=== PATIENT | male | born 1935 | race Caucasian/White ===

== ENCOUNTER 2016-04-19 14:57 | Inpatient (IN) | payer MEDICARE, OTHER ==
[~2016-04-19] VITALS: Ht 182.9 cm; Wt 190.2 kg
[2016-04-19] VITALS (9 sets, daily range): BP systolic 92–169; BP diastolic 58–77; PULSE 60–85; RESP 16–29; O2SAT 79–100
[~2016-04-19 14:57] MED LIST: ALPR0.5T PO; ARFO15VI2 NEB; ASCO-294 PO; ASPI81TA3 PO; Acetaminophen PO; Albuterol NEB; Albuterol/Ipratropium NEB; BDS.4IN INH; BUDE1AMP IH; FERR-74 PO; FRSM80T PO; FURO80TA83 PO; MONT10TA23 PO; MUPI22OI2 TOPICAL; NYST1POW23 MC; NYST1POW25 TOPICAL; PARO20TA5 PO; POLY17PO6 PO; POTA10TA7 PO; PRE10 PO; TRAM-14 PO; VITA80006 PO
--- NOTE | 2016-04-19 15:16 | ED.REPORT ---
HPI-Dyspnea / Wheezing Date of Service Apr 19, 2016 ED Provider: Dr. Baldemar Hoffman M.D. A 81 year old male with an extensive medical history including COPD, hypertension, CHF, and atrial fibrillation presents to the ED via EMS from his PCP's office with worsening shortness of breath onset one week ago. The patient also reports a productive cough. He was seen by his PCP for a routine check-up today, but was found to have low O2 saturation. The patient ran out of his Albuterol, DuoNeb, and Lasix recently. He denies chest pain, fever, vomiting, or diarrhea. The patient is on home O2. Nursing Notes Stated Complaint: SOB Chief Complaint: Respiratory Distress Nursing Notes Reviewed: Yes Allergies: Coded Allergies: No Known Allergies (Unverified , 04/19/16) Scheduled Albuterol Neb Soln (Albuterol Neb Soln) 2.5 Mg/3 Ml Vial.neb 3 ML INHALATION QID Alprazolam (Alprazolam) 0.5 Mg Tablet 0.5 MG PO BID Arformoterol Tartrate (Brovana) 15 Mcg/2 Ml Nebu 15 MCG NEB BID Aspirin Chew (Aspirin Chew) 81 Mg Chew 81 MG PO DAILY Budesonide (Pulmicort) 1 Mg/2 Ml Ampul.neb 1 MG IH BID Bupropion ER (Bupropion ER) 150 Mg Tablet.er 150 MG PO QAM Cyanocobalamin (Vitamin B-12) (Vitamin B-12) 1,000 Mcg Tab.subl 1,000 MCG SL DAILY Ferrous Sulfate (Ferrous Sulfate) 325 Mg Tablet 325 MG PO BID Furosemide (Furosemide) 80 Mg Tab 160 MG PO QAM Furosemide (Lasix) 80 Mg Tablet 80 MG PO QPM Lisinopril (Lisinopril) 10 Mg Tablet 10 MG PO BID Montelukast (Montelukast) 10 Mg Tablet 10 MG PO HS Paroxetine (Paroxetine) 20 Mg Tablet 20 MG PO HS Potassium Chloride ER (Klor-Con 10) 10 Meq Tablet.er 10 MEQ PO BID Prednisone (PredniSONE) 10 Mg Tablet 10 MG PO QAM Scheduled PRN Albuterol Sulfate (Ventolin HFA Inhaler) 200 Puff/18 Gm Inhaler 1-2 PUFFS INHALATION QID PRN PRN For Shortness of Breath Ipratropium/Albuterol Sulfate (Iprat-Albut 0.5-3(2.5) mg/3 mL Inhalant Soln) 3 Ml Ampul.neb 3 ML IH Q6 PRN PRN For Wheezing Metolazone (Metolazone) 2.5 Mg Tablet 2.5 MG PO 1-2 xWEEK PRN PRN LE EDEMA Nystatin (Nystop) 60 Gm Powder 1 APPLIC TOPICAL BID PRN PRN rash Polyethylene Glycol 3350 (Miralax) 17 Gm Powd.pack 17 GM PO DAILY PRN PRN For Constipation Sennosides (Senna) 8.6 Mg Tablet 8.6 MG PO DAILY PRN PRN For Constipation Tramadol (Tramadol) 50 Mg Tablet 50 MG PO QID PRN PRN For Pain Trazodone (Trazodone) 50 Mg Tablet 25 MG PO HS PRN PRN insom General Time Seen by MD: 15:15 Chief Complaint Shortness of breath Hx Obtained From: Patient Arrived By: Ambulance Onset Occurred: 1 week ago Symptom Duration: Since onset Severity: Current: No pain currently Severity: Maximum: No pain Associated with: Reports: Cough, Denies: Fever, Vomiting Pertinent Negative: Relieved by nothing Context Related History: Reports: COPD, Congestive heart failure Recent Healthcare: Recent doctor visit Similar Sx Previous: Yes Past Medical History Past Medical History Notes: Admitted January 23 through 01/30/2015 for pneumonia culturing positive for Moraxella catarrhalis Past Medical History Severe COPD, history of hypoxic hypercarbic respiratory failure, also obesity hypoventilation syndrome and sleep apnea On home O2 Morbid obesity Pulmonary hypertension Insomnia Obstructive Sleep Apnea Depression Gout Cellulitis MRSA Reports: Cancer (Prostate), Congestive heart failure (Diastolic), Hypertension Reports: Atrial fibrillation Past Surgical History Prostatectomy for prostate CA Cholecystectomy Appendectomy White knee arthroplasty Family History Mother () bladder cancer Smoking History Former Smoker Social History Lives with . Alcohol Use: Denies alcohol use Drug Use: Denies drug use Ambulatory Status Cane Review of Systems Review of Systems Note: + productive cough, low O2 saturation Constitutional: Denies: Fever Respiratory: Reports: Shortness of breath Cardiovascular: Denies: Chest pain Complete sys rev & neg: except as marked. GI: Denies: Diarrhea, Vomiting Physical Exam Initial Vital Signs Vital Signs (First) Date Time Temp Pulse Resp B/P Pulse Ox O2 Delivery O2 Flow Rate FiO2 04/19/16 15:11 36.8 85 17 92/61 94 Nasal Cannula 4 Initial VS: Reviewed Head / Eyes: Atraumatic, Normocephalic ENT: Conjunctiva normal, No scleral icterus Abdomen / GI: Soft, Non-tender Skin: Warm, Dry, No cyanosis Neurologic: Alert, Oriented, Nonfocal Psychiatric: Mood/affect normal, Behavior normal, Normal thought content General/Constitutional: Awake, Alert, No acute distress Appearance / Presentation: Positive: Obese Neck: Supple, Full range of motion Respiratory / Chest: Breath sounds = bilat, No respiratory distress, No rales, No rhonchi Wheezing / Retractions: Positive: Wheezing expiratory (Diffuse) Cardiovascular: Heart rate NL, Regular rhythm, Heart sounds NL Lower Extremity / Pelvis / MS: No deformity, No edema Chronic venous stasis changes of lower extremities Interpretation & Diagnostics Lab Results Interpretation Result Diagram: 04/20/16 0515 04/20/16 0515 Test 04/19/16 15:33 04/19/16 15:51 Total Bilirubin 0.7mg/dL (0.0-1.2) Aspartate Amino Transf (AST/SGOT) 19U/L (0-50) Alanine Aminotransferase (ALT/SGPT) 12U/L (0-44) Alkaline Phosphatase 69U/L (25-160) Pro-B-Type Natriuretic Peptide 2142pg/mL (0-486) Total Protein 6.8g/dL (6.4-8.4) Albumin 3.5g/dL (3.4-5.0) Hold Mir Top Tube Received (Received) ECG Interpretation ECG Interpretation: Atrial fibrillation rate 73 Time: 15:24 Interpreted by: ED physician X-Ray Chest Interpretation Chest Xray Interpretation: IMPRESSION: Considering reduced inspiration no cardiomegaly is found. Chronic mild to moderate interstitial prominence. It is possible that there is a mild acute CHF exacerbation. Dictated by: Everardo Chong M.D. on 04/19/2016 at 16:36 View: Portable, 1 view Interpretation / Wet Read by: Interpret - Radiologist Re-Eval/Medical Decision Source of Hx: Old records Re-Evaluation/Progress #1: Time of Eval: 17:25 Patient Status: Condition improved Re-Evaluation/Progress Note: Discussed with patient x-ray and lab results, diagnosis, and plan for discharge. Patient agrees with plan for care and all questions were addressed. Re-Evaluation/Progress #2: Time of Eval: 17:40 Re-Evaluation/Progress Note: Patient's O2 sats dropped into low 80s when going to the bathroom. Discussed with patient plan for admit. Patient agrees with plan for care and all questions were addressed. Consultation : Referral / Consult Name: Itzel Toney MD Consulted With: Hospitalist Belly Dump Driver: Will see patient, Accepts admit Counseled Regarding: Diagnosis, Lab results, Need for admission Discharge & Departure Impression: Primary Impression: CHF exacerbation Disposition: ADMITTED TO HOSPITAL Discharge Condition All VS Reviewed: Yes Condition: Stable Referrals: Rk Valiente MD (PCP) Murphyibsilvia Attestation Portions of this note were transcribed by Lakeisha Vital. I, Dr. Hoffman, personally performed the history, physical exam, and medical decision-making; I reviewed and confirmed the accuracy of the information in the transcribed note. Signed by: Rena Kraft, 04/19/2016, 17:55 copies to: Rk Valiente MD, Kirk H MD Apr 19, 2016 15:16 LAKEISHA VITAL Apr 19, 2016 15:30 Alanine Aminotransferase (ALT/SGPT) 12U/L (0-44) Alkaline Phosphatase 69U/L (25-160) Troponin T 0.014ug/L (0.0-0.011) Pro-B-Type Natriuretic Peptide 2142pg/mL (0-486) Total Protein 6.8g/dL (6.4-8.4) Albumin 3.5g/dL (3.4-5.0) Hold Mir Top Tube Received (Received) ECG Interpretation ECG Interpretation: Atrial fibrillation rate 73 Time: 15:24 Interpreted by: ED physician X-Ray Chest Interpretation Chest Xray Interpretation: IMPRESSION: Considering reduced inspiration no cardiomegaly is found. Chronic mild to moderate interstitial prominence. It is possible that there is a mild acute CHF exacerbation. Dictated by: Everardo Chong M.D. on 04/19/2016 at 16:36 View: Portable, 1 view Interpretation / Wet Read by: Interpret - Radiologist Re-Eval/Medical Decision Source of Hx: Old records Re-Evaluation/Progress #1: Time of Eval: 17:25 Patient Status: Condition improved Re-Evaluation/Progress Note: Discussed with patient x-ray and lab results, diagnosis, and plan for discharge. Patient agrees with plan for care and all questions were addressed. Re-Evaluation/Progress #2: Time of Eval: 17:40 Re-Evaluation/Progress Note: Patient's O2 sats dropped when going to the bathroom. Discussed with patient plan for admit. Patient agrees with plan for care and all questions were addressed. Counseled Regarding: Diagnosis, Lab results, Need for admission Discharge & Departure Impression: Primary Impression: CHF exacerbation Disposition: ADMITTED TO HOSPITAL Discharge Condition All VS Reviewed: Yes Condition: Stable Referrals: Rk Valiente MD (PCP) Rena Attestation Portions of this note were transcribed by Lakeisha Vital. I, Dr. Hoffman, personally performed the history, physical exam, and medical decision-making; I reviewed and confirmed the accuracy of the information in the transcribed note. Signed by: Rena Kraft, 04/19/2016, 17:55 copies to: Rk Valiente MD, Kirk H MD Apr 19, 2016 15:16 LAKEISHA VITAL Apr 19, 2016 15:30 LAKEISHA VITAL Apr 19, 2016 15:30
[2016-04-19] MEDS ORDERED: Albuterol-Ipratropium 3 mL Inhalation Solution NEB ONE (15:25)
[2016-04-19] MEDS ORDERED: Albuterol 2.5 mg/3 mL Inhalation Solution NEB ONE (15:25)
[2016-04-19 15:43] LABS: BASOPHILS % (AUTO) 0.3 % (0-3); EOSINOPHILS % (AUTO) 1.5 % (0-5); MONOCYTES % (AUTO) 9.1 % (4-12); Mean Corpuscular Hemoglobin 27.9 pg (27.0-35.0); NEUTROPHILS % (AUTO) 81.2 % (40-74); Platelet Count 130 bil/L (150-400)
[2016-04-19 16:03] LABS: TROPONIN T 0.014 ug/L (0.0-0.011)
--- NOTE | 2016-04-19 16:37 | DRSVH ---
PROCEDURE: X-RAY CHEST ONE VIEW, PORTABLE ([id number]) INDICATIONS: hypoxia/wheezing TECHNIQUE: One view of the chest was acquired. COMPARISON: [facility], CR, XR CHEST 1VW (PORTABLE), 10/21/2015, 14:30. FINDINGS: Surgical changes and devices: None. Lungs and pleura: No pleural effusions or pneumothorax. Lungs are abnormal with a chronic interstit ial prominence, previously present. Mediastinum: Mediastinal contours appear normal. Heart size is normal. Bones and chest wall: No suspicious bony lesions. Overlying soft tissues appear unremarkable. IMPRESSION: Considering reduced inspiration no cardiomegaly is found. Chronic mild to moderate inter stitial prominence. It is possible that there is a mild acute CHF exacerbation. Dictated by: Everardo Chong M.D. on 04/19/2016 at 16:36 Approved by: Everardo Chong M.D. on 04/19/2016 at 16:36
[2016-04-19] MEDS ORDERED: Furosemide 10 mg/mL 4 mL Inj IVPUSH ONE (17:40)
[2016-04-19] MEDS ORDERED: Lidocaine 2% 6mL Topical Jelly ONE (18:17)
--- NOTE | 2016-04-19 18:42 | PCM.HPMED ---
Subjective Date of Service Apr 19, 2016 Primary Provider: Admitting Physician: Itzel Toney MD Primary Care Physician: Rk Valiente MD Attending Physician: Itzel Toney MD Chief Complaint: Worsening hypoxia HISTORY was OBTAINED FROM PATIENT / MEDITECH NOTES History of present illness 81-year-old male, 1 week of shortness of breath and chronic productive cough, worse with exertion, 4 L O2 requirement with baseline home requirement is usually 2-3. He saw his primary care provider today on a routine visit. He has a CPAP at home but did not bring it. He was unable to fill his Lasix for week and DuoNeb's 4 week period he did take his Lasix 2 days ago and yesterday when he found old pills with good urine output. Otherwise he feels good Review of Systems - none of the following - F/C/sick contact / wt change/ BALDERRAMA / lightheaded / dizziness / sob / cough / cp / acid reflux / n/v/diarrhea / bleeding/bruising / leg swelling / change in voiding / yeast infections / rash Ambulates with a cane FAMILY HX SOCIAL HX MEDICATIONS ([Albuterol/Ipratropium]) 3 ML NEBU 3 ML NEB Q4HWA Arformoterol Tartrate (Brovana) 15 Mcg/2 Ml Nebu 15 MCG NEB BID Ascorbate Calcium (Vitamin C) 500 Mg Tablet 500 MG PO DAILY Aspirin Chew (Aspirin Chew) 81 Mg Chew 81 MG PO DAILY Budesonide (Pulmicort) 1 Mg/2 Ml Ampul.neb 1 MG IH BID Budesonide (Pulmicort Flexhaler) 60 Puff/Inh Inhaler 1 PUFF INH BID Ferrous Sulfate (Feosol) 325 Mg Tablet 325 MG PO DAILYWM Furosemide (Furosemide) 80 Mg Tab 160 MG PO QAM Furosemide (Lasix) 80 Mg Tablet 80 MG PO QPM Montelukast (Montelukast) 10 Mg Tablet 10 MG PO HS Mupirocin (Mupirocin Ointment) 22 Gm Oint...g. 1 APPLIC TOPICAL BID Nystatin (Nystatin) 1 Each Powder.ea. 1 EACH MC DAILY Nystatin (Nystatin) 1 Each Powder.ea. 1 APPLIC TOPICAL BID Paroxetine (Paroxetine) 20 Mg Tablet 20 MG PO HS Potassium Chloride ER (Klor-Con 10) 10 Meq Tablet.er 10 MEQ PO BID Prednisone (PredniSONE) 10 Mg Tablet 10 MG PO DAILY Vitamin A (Vitamin A) 8,000 Unit Capsule 8,000 UNIT PO DAILY Scheduled PRN ([Albuterol]) 2.5 MG/3 ML NEBU 2.5 MG NEB Q2H PRN PRN For Shortness of Breath ([Acetaminophen]) 325 MG TABLET 650 MG PO Q4H PRN PRN For Pain Alprazolam (Xanax) 0.5 Mg Tablet 0.5 MG PO BID PRN PRN For Anxiety Polyethylene Glycol 3350 (Miralax) 17 Gm Powd.pack 17 GM PO DAILY PRN PRN For Constipation Tramadol (Ultram) 50 Mg Tablet 50 MG PO Q4H PRN PRN For Mild Pain Past Medical History Notes: Atrial fibrillation/CHF/hypertension Anxiety Admitted January 23 through 01/30/2015 for pneumonia culturing positive for Moraxella catarrhalis Severe COPD, history of hypoxic hypercarbic respiratory failure, also obesity hypoventilation syndrome and sleep apnea On home O2 2-3L Morbid obesity Pulmonary hypertension Insomnia Obstructive Sleep Apnea Depression Gout Cellulitis, right leg MRSA Gout Prostatectomy for prostate CA Cholecystectomy Appendectomy White knee arthroplasty Family History Brother brain cancer Mother () bladder cancer Smoking History Former Smoker Lives with . Allergies Coded Allergies: No Known Allergies (Unverified , 04/19/16) PMH Social History Hx Alcohol Use: Yes (occas beer) Hx Substance Use: No Hx Tobacco Use: Yes (quit 26 years ago) Smoking Status: Former Smoker Exam Vital Signs Vital Sign - Last Date Time Temp Pulse Resp B/P Pulse Ox O2 Delivery O2 Flow Rate FiO2 04/19/16 17:42 96 Nasal Cannula 4 04/19/16 17:41 72 29 102/58 04/19/16 15:11 36.8 Exam Exam on admission 4 L nasal cannula NAD A and O x 3 mood affect WNL NC/AT no icterus no injected eyes EOMI PERRL /no pharyngeal lesions/ no oral lesions / hearing intact Supple neck Diminished breath sounds bilateral with right-sided wheeze equal chest rise / no accessory muscle use / speaks in full sentences / no rrw RRR S1 S2 / no mrg / 2+ radial pulses Soft nt nd + BS no hepatosplenomegaly no cyanosis no ecchymosis of lower extremities no jaundice GUTIÉRREZ Chronic skin changes of lower extremities with erythema Diffuse intertrigo in all folds of his lower extremities and groin and infra- pannus areas EKG 73atrial fibrillation no ST changes Troponin 0.014 Lab and Diagnostics Result Diagram: 04/19/16 1533 04/19/16 1533 Assessment & Plan Active issues and reason for admission Acute on chronic hypoxia, contributory COPD exacerbation and CHF exacerbation, due to running out of his inhalers for week, resumed his Lasix 2 days ago after he ran out of Lasix prescriptions week ago. -- Pending strep pneumo urine, sputum culture, influenza PCR -- DuoNeb, resume home dose Lasix, status post 40 IV Lasix in the ER Diffuse intertrigo -- Nystatin Elevated troponin -- Serial troponin Chronic issues known prior to admission, present on admission Atrial fibrillation/CHF/hypertension Anxiety Severe COPD, obesity hypoventilation syndrome and sleep apnea Morbid obesity Pulmonary hypertension Insomnia Obstructive Sleep Apnea Depression Gout Prostatectomy for prostate CA Diet cardiac DVT prophylaxis lovenox Code full Disposition inpatient Assessment and plan were discussed with patient Itzel Toney MD Apr 19, 2016 18:42
[2016-04-19] MEDS ORDERED: ALPR0.5T8 PO (18:55)
[2016-04-19] MEDS ORDERED: BUPR150T12 PO (18:58)
[2016-04-19] MEDS ORDERED: ALBU2.5V4 INHALATION (18:58)
[2016-04-19] MEDS ORDERED: ALBU18HF INHALATION (18:58)
[2016-04-19] MEDS ORDERED: LISI10TA PO (19:02)
[2016-04-19] MEDS ORDERED: FERR-83 PO (19:02)
[2016-04-19] MEDS ORDERED: IPRA3AMP IH (19:02)
[2016-04-19] MEDS ORDERED: METO2.5T12 PO (19:09)
[2016-04-19] MEDS ORDERED: SENN-133 PO (19:09)
[2016-04-19] MEDS ORDERED: TRAM50TA2 PO (19:09)
[2016-04-19] MEDS ORDERED: TRAZ-115 PO (19:09)
[2016-04-19] MEDS ORDERED: CYAN100017 SL (19:10)
[2016-04-19] MEDS ORDERED: NYST60PO TOPICAL (19:12)
[2016-04-19] MEDS: Arformoterol 15 mCg/2 mL Inhalation Solution NEB SCH (20:30)
--- NOTE | 2016-04-19 20:30 | NUR ---
Admission Note Pt admitted to [facility] from ER on [facility] at 2014, alert and orientedx3, appears SOB at bedrest, significantly increased SOB and cyanosis when stood up and transfer himself to bed. Cough occasionally, clear small sputum per pt, pt aware sputum sample needed if any. Denies any pain/chest pressure/N/V/diaphoresis/fever/chills. BP154/74 HR 61, RR 27, SPO2 96% ON O2 4l per nc, afebrile. Morbid obese, coarse lung sounds and a few wheezes at left posterior lung, coarse lung sounds at right lung, decreased lung sounds, right side<left.Distant S1 S2, irregular, no murmur.Tele applied: A-fib 57 per angio technologist. Abdomen soft, non tender, BT active. Lymphedema at bilateral LEs,redness, skin chronic changes- rough, thick. Red,very moist skin at abdominal skin folds,both groins and perineum, foul smell. Vaughan present, placed at ER due to Lasix use. Pt oriented to call light. Care ongoing.
[2016-04-19] MEDS: PARoxetine 20 mg Tablet PO SCH (21:44)
[2016-04-19] MEDS: ALPRAZolam 0.5 mg Tablet PO SCH (21:44)
[2016-04-19] MEDS: Albuterol-Ipratropium 3 mL Inhalation Solution NEB SCH (21:45)
[2016-04-19] MEDS: Nystatin 100,000 Unit/Gm 15 Gm Powder TOPICAL SCH (21:45)
[2016-04-19] MEDS: Budesonide 0.5 mg/2 mL Inhalation Solution NEB SCH (21:45)
[2016-04-20] VITALS (15 sets, daily range): BP systolic 98–133; BP diastolic 57–75; PULSE 54–80; RESP 18–20; O2SAT 88–96
[2016-04-20 01:14] LABS: APPEARANCE,URINE CLEAR (CLEAR,HAZY); COLOR,URINE YELLOW (YELLOW); OCCULT BLOOD,URINE MODERATE (NEGATIVE); UROBILINOGEN,URINE NORMAL (NORMAL)
--- NOTE | 2016-04-20 04:37 | NUR ---
A-fib HR 39 Tele report at 0415: a-fib 39 for 3seconds, then back to 50s. Asymptomatic, pt sleeping. Dr. Salvador made aware.
[2016-04-20 06:51] LABS: BASOPHILS % (AUTO) 0.4 % (0-3); EOSINOPHILS % (AUTO) 5.2 % (0-5); MONOCYTES % (AUTO) 11.4 % (4-12); Mean Corpuscular Hemoglobin 28.3 pg (27.0-35.0); Mean Corpuscular Volume 93.3 fL (81-100); NEUTROPHILS % (AUTO) 67.4 % (40-74); Platelet Count 114 bil/L (150-400)
[2016-04-20] MEDS: Budesonide 0.5 mg/2 mL Inhalation Solution NEB SCH ×2 (07:31→19:21)
[2016-04-20] MEDS: Arformoterol 15 mCg/2 mL Inhalation Solution NEB SCH ×2 (07:31→19:21)
[2016-04-20] MEDS: Albuterol-Ipratropium 3 mL Inhalation Solution NEB SCH ×3 (07:31→19:21)
[2016-04-20] MEDS: ALPRAZolam 0.5 mg Tablet PO SCH ×2 (07:59→21:17)
[2016-04-20] MEDS: buPROPion SR 150 mg ER12 Tablet PO SCH (07:59)
[2016-04-20] MEDS ORDERED: predniSONE 10 mg Tablet PO SCH (08:00)
[2016-04-20] MEDS: diphenhydrAMINE 25 mg Capsule PO PRN ×2 (08:47→16:43)
[2016-04-20] MEDS: Nystatin 100,000 Unit/Gm 15 Gm Powder TOPICAL SCH ×2 (08:47→21:14)
[2016-04-20] MEDS: predniSONE 10 mg Tablet PO SCH (10:36)
--- NOTE | 2016-04-20 12:03 | PCM.PNMED ---
Subjective Date of Service Apr 20, 2016 Subjective No overnight events. Patient states his breathing has gotten much easier. Complains of itching at back. Requesting a foot doctor to come look at his toe nail fungus. Otherwise no complaints or concerns. Exam Vital Signs Vital Sign - Last Date Time Temp Pulse Resp B/P Pulse Ox O2 Delivery O2 Flow Rate FiO2 04/20/16 10:08 61 04/20/16 09:42 36.6 20 133/67 95 Nasal Cannula 3.50 Intake and Output 04/19/16 04/19/16 04/20/16 Cumulative From/Thru 15:00 23:00 07:00 04/19/16 15:11 - 04/20/16 06:30 Intake Total 400 ml 400 ml Output Total 2200 ml 2200 ml Balance -1800 ml -1800 ml Intake Oral 400 ml 400 ml Output Urine Total 2200 ml 2200 ml Exam GEN: Morbidly obese gentleman in NAD. Alert and oriented. HEENT: NC/AT, EOMI PERRL, sclera anicteric Neck: Supple with full ROM CV: Distant heart sounds. Irregular irregular no murmurs Lungs: Poor inspiratory effort. Coarse breath sounds bilaterally with inspiratory and expiratory wheezes R>L. No signs of respiratory distress. No accessory muscle use noted. ABD: Soft, obese, no guarding, normal bowel tones EXT: No cyanosis or rash Skin: chronic skin changes of lower extremities with scaly plaques. Intertrigo in lateral folds of pannus and groin bilaterally. IVs and Medications Medications Reviewed: Medications were reviewed in detail Lab and Diagnostics Result Diagram: 04/20/1651404/20/16514 Assessment & Plan Morbidly obese 81-year-old male, presents to ED with hx of COPD, CHF 1 week of shortness of breath and chronic productive cough, worse with exertion, requiring 4 L O2 requirement with baseline home requirement is usually 3, 24hrs. Patient ran out of his Lasix for week and DuoNeb's 4 weeks. Admitted for COPD and CHF exacerbation. Active issues and reason for admission Acute on chronic hypoxia, contributory COPD exacerbation and CHF exacerbation, due to running out of his inhalers for week, resumed his Lasix 2 days ago after he ran out of Lasix prescriptions week ago. -- Influenza screen negative -- Pending strep pneumo urine, sputum culture, PCR -- DuoNeb, resume home dose Lasix, status post 40 IV Lasix in the ER Diffuse intertrigo -- Nystatin Elevated troponin -- Serial troponin Chronic issues known prior to admission, present on admission Atrial fibrillation -- telemetry CHF -- home dose Lasix as above hypertension -- home meds Anxiety Severe COPD, obesity hypoventilation syndrome and sleep apnea Morbid obesity Pulmonary hypertension Insomnia Obstructive Sleep Apnea Depression Gout S/p prostatectomy for prostate CA DVT prophylaxis lovenox Code full Dispo: Anticipate discharge in 1-2 days. Pain Evaluation: Adequate Pain Control VTE Prophylaxis: Sub-Q Enoxaparin VTE Mechanical Devices: Intermittant Pneumatic CD Resuscitation Status: CPR: Attempt Resuscitation Time spent 25 minutes Attending Statement I have seen and evaluated patient at bedside and directly supervised care provided by resident physician. I agree with above documentation. Pedro Luis Villagran DO Apr 20, 2016 12:01 Alon Prince DO Apr 20, 2016 15:09
[2016-04-20] MEDS: PARoxetine 20 mg Tablet PO SCH (21:13)
[2016-04-21] VITALS (12 sets, daily range): BP systolic 130–146; BP diastolic 64–84; PULSE 45–69; RESP 14–24; O2SAT 93–98
--- NOTE | 2016-04-21 04:54 | NUR ---
-[facility] hospital Pt had no other issues with Vtach this shift, tele at [facility], HR 54. No complaints of chest pain or discomfort, pt remained in bed for the shift. Will continue to monitor pt , left room with call light at bedside.
[2016-04-21 05:49] LABS: BASOPHILS % (AUTO) 0.2 % (0-3); EOSINOPHILS % (AUTO) 5.2 % (0-5); MONOCYTES % (AUTO) 11.2 % (4-12); Mean Corpuscular Hemoglobin 28.4 pg (27.0-35.0); Mean Corpuscular Volume 93.8 fL (81-100); NEUTROPHILS % (AUTO) 70.9 % (40-74); Platelet Count 124 bil/L (150-400)
[2016-04-21] MEDS: Arformoterol 15 mCg/2 mL Inhalation Solution NEB SCH ×2 (07:30→20:00)
[2016-04-21] MEDS: predniSONE 10 mg Tablet PO SCH (08:32)
[2016-04-21] MEDS: Nystatin 100,000 Unit/Gm 15 Gm Powder TOPICAL SCH ×2 (08:33→19:51)
[2016-04-21] MEDS: buPROPion SR 150 mg ER12 Tablet PO SCH (08:33)
[2016-04-21] MEDS: ALPRAZolam 0.5 mg Tablet PO SCH ×2 (08:38→19:51)
--- NOTE | 2016-04-21 09:15 | NUR ---
[facility] signed 8:35am. GLENIS Abdi
--- NOTE | 2016-04-21 09:22 | NUR ---
Social Work: Initial Assessment Data: Pt is a 81 y/o male admitted for CHF exacerbation. EMR reviewed. INSPECTING ENGINEER met with pt at bedside, role explained. Pt states that he lives in [place] with his spouse in a single story home where he uses a cane regularly. Pt states that he has a DPOA, but did not have contact information, INSPECTING ENGINEER requested a copy for hospital. Pt states that he drives and plans to drive himself home. Pt reports history with [facility] and with SNF. Pt states that he has no LTC or VA benefits and is not a caregiver for another. Pt states that MD told him this morning PT was going to work with him today. Pt also states he does not want to go to SNF. INSPECTING ENGINEER asked if HH is recommended which company he would prefer. Pt states he will have to think about it. F2F in INSPECTING ENGINEER folder for MD to sign. INSPECTING ENGINEER will continue to follow. Assessment: Pt who is independent at baseline, uses a cane. Plan: Pt will d/c home via POV when medically stable possibly with HH. INSPECTING ENGINEER will continue to follow. GLENIS Abdi Addendum: 04/21/16 at 0926 by CINDA PATEL Amended: Links added.
--- NOTE | 2016-04-21 11:22 | PCM.DIMED ---
Discharge Instructions Date of Service Apr 21, 2016 Dates of Hospitalization Apr 19, 2016 at 18:14 Discharge Diagnosis Discharge Diagnosis Acute COPD exacerbation, present on admission,stable Pulmonary Hypertension, present on admission, stable Acute on chronic hypoxia, present on admission, stable Diffuse intertrigo Elevated troponin of unknown significant, Stable Chronic issues known prior to admission, present on admission Essential Hypertension, present on admission,stable. Chronic afib, present on admission, stable Diet Low fat, Low Sodium Activity Home Health Phyical Therapy Call your provider Fever or Chills, Shortness of breath, Chest pain Patient Instructions You were admitted for mild COPD exacerbation. Missing doses of your medication likely was a big factor. Please contact your primary care provider should you run out of medications, need a pharmacy scrip, or feel that you are unable to take your medications. Please make an appt with Dr. Valiente within 1wk for a "Hospital follow-up" Follow-up Provider: Rk Valiente MD Follow-up with PCP in: 1 week Thien Fonseca DO Apr 21, 2016 11:22
--- NOTE | 2016-04-21 12:49 | NUR ---
Evaluation completed. Please go to "Notes" then click on "Assessments and Notes" (bottom left corner of screen). Then select appropriate discipline tab on top of screen.
--- NOTE | 2016-04-21 14:10 | PCM.PNMED ---
Subjective Date of Service Apr 21, 2016 Subjective Patient is a morbidly obese, chronically sick 81yom with MHx of COPD on home O2 (2-3L) and portal hypertension presented with 1 week of shortness of breath and chronic productive cough, worse with exertion, requiring 4 L O2 requirement wit baseline home requirement is usually 3, 24hrs. Patient ran out of his Lasix for week and DuoNeb's 4 weeks. Admitted for COPD exacerbation. No overnight event. Afib with 50's and 60's some pause <2sec. Today, he reports "I have cellulitis". He states hx of cellulitis, usually starts with weeping feet. He denies any fever, chills. No leg pain. He continues to have SOB on 4L of O2. Patient was planned for discharge early today. However, desat to 81's requiring 4min to recover. Exam Vital Signs Vital Sign - Last Date Time Temp Pulse Resp B/P Pulse Ox O2 Delivery O2 Flow Rate FiO2 04/21/16 13:07 59 24 94 Nasal Cannula 3.50 04/21/16 11:00 36.4 130/64 Intake and Output 04/20/16 04/20/16 04/21/16 Cumulative From/Thru 15:00 23:00 07:00 04/19/16 15:11 - 04/21/16 06:28 Intake Total 1600 ml 400 ml 2400 ml Output Total 2075 ml 2700 ml 6975 ml Balance -475 ml -2300 ml -4575 ml Intake Oral 1600 ml 400 ml 2400 ml Output Urine Total 2075 ml 2700 ml 6975 ml # Bowel Movements 0 0 Exam Gen: chronically ill appearing, morbid obese, disheveled. Exam limited by body habitus HEENT: PERRLA, Anicteric sclerae, moist conjunctivae, and no lid lag. Hearing loss b/l ear Neck: neck diameter >19, cannot assess JVD due to body habitus Cardio: Afib. cannot apperciate any murmur, rub, or gallop. Pulm: b/l air sound, no crackles, wheezes, or rhonchi. Normal respiratory effort with no use of accessory muscles. Abd: positive bowel tone. Soft, nontender, nondistended. Extremities: B/L edema, "woody" texture. b/l posterior lower leg weeping-clear fluid. Skin: no erythema on the lower legs. no temperature changes. Neuro: Cranial nerves grossly intact. Normal muscle strength, tone, and bulk. Reflexes, coordination, and sensory function within normal limits. No known gait impairment. Psyc: Normal mood and affect. Alert and oriented to person, place, and time. IVs and Medications Medications Reviewed: Medications were reviewed in detail Lab and Diagnostics Result Diagram: 04/21/1652404/21/16524 Assessment & Plan Patient is a morbidly obese, chronically sick 81yom with MHx of COPD on home O2 (2-3L) and portal hypertension presented with 1 week of shortness of breath and chronic productive cough, worse with exertion, requiring 4 L O2 requirement wit baseline home requirement is usually 3, 24hrs. Patient ran out of his Lasix for week and DuoNeb's 4 weeks. Admitted for COPD exacerbation. Acute on chronic hypoxia, present on admission, active -- Patient requires to 3 L O2 at home, however required 4 L O2 at rest. Desat to the low 80s with activity -- Multifactorial: deconditioning, medication noncompliance,COPD exacerbation -- Influenza screen negative, sputum culture negative pending procalcitonin -- Continue to monitor. Acute COPD exacerbation, present on admission, active -- DuoNeb 4 times a day while awake provided -- Continue home prednisone, Brovana 15 MCG nebulizer twice a day, and budesonide 0.5 mg nebulizer twice a day -- Patient likely has severe COPD, there are no PFT on the chart. Recommend PFT 4-6wks from discharge. Pulmonary hypertension, present on admission, active -- Likely due to a combination of COPD and sleep apnea -- Responded well to diurese with home dosed furosemide 160 mg PO QAM and furosemide 80 mg PO QPM, augment by metolazone -- BMP in the AM Asthma, present admission, active -- Continue Singulair 10 mg at bedtime Obstructive sleep apnea, present on admission, active -- Pulse oximetry on, continuous O2 at night. 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 VTE Prophylaxis: Sub-Q Enoxaparin VTE Mechanical Devices: Intermittant Pneumatic CD Resuscitation Status: CPR: Attempt Resuscitation Time spent 30 minutes Attending Statement I have seen and evaluated patient at bedside and directly supervised care provided by resident physician. I agree with above documentation. Thien Fonseca DO Apr 21, 2016 14:10 Alon Prince DO Apr 22, 2016 07:02
[2016-04-21] MEDS: Albuterol-Ipratropium 3 mL Inhalation Solution NEB SCH ×2 (16:12→19:57)
[2016-04-21] MEDS: PARoxetine 20 mg Tablet PO SCH (19:51)
[2016-04-21] MEDS: Budesonide 0.5 mg/2 mL Inhalation Solution NEB SCH (19:57)
[2016-04-22] VITALS (11 sets, daily range): BP systolic 123–170; BP diastolic 52–94; PULSE 52–98; RESP 18–22; O2SAT 90–96
--- NOTE | 2016-04-22 05:34 | NUR ---
O2 Saturation Pt is still having SOB upon exertion. Last night on 4LPM but titrated down to 3LPM and tolerating well. Nystatin applied to groin, under chest creases and folds. Denies chest pain, n/v and abd discomfort. VSS and will continue to monitor.
[2016-04-22] MEDS: Nystatin 100,000 Unit/Gm 15 Gm Powder TOPICAL SCH ×2 (08:18→21:07)
[2016-04-22] MEDS: predniSONE 10 mg Tablet PO SCH (08:19)
[2016-04-22] MEDS: ALPRAZolam 0.5 mg Tablet PO SCH ×2 (08:20→21:04)
[2016-04-22] MEDS: buPROPion SR 150 mg ER12 Tablet PO SCH (08:20)
[2016-04-22] MEDS: Budesonide 0.5 mg/2 mL Inhalation Solution NEB SCH ×3 (08:30→20:37)
[2016-04-22] MEDS: Albuterol-Ipratropium 3 mL Inhalation Solution NEB SCH ×4 (08:48→20:37)
[2016-04-22] MEDS: Arformoterol 15 mCg/2 mL Inhalation Solution NEB SCH ×2 (08:48→20:37)
--- NOTE | 2016-04-22 10:54 | NUR ---
Social Work-readiness for discharge: Data:EMR Reviewed. Pt is on day 3 of hospitalization for CHF per H&P. Per MD, pt may be ready to discharge later today. PT recommending home with HH vs SNF. CHELSEA followed up with pt at bedside who continues to decline SNF placement. CHELSEA called [facility] and confirmed with them that pt is on their do not take back list. CHELSEA called Evelio Wiley at [facility] an confirms they are able to accept referral for RN,PT,OT, and DEPARTMENT OF NATURAL RESOURCES OFFICER, access given .CHELSEA explained to pt that [facility] is not able to accept pt, but [facility] is, SW provided him with HH choice list. PT states he uses home O2 through [facility]. F2F in folder. SW will continue to follow. Assessment:Pt who would benefit from . Plan:Pt to discharge home when medically stable via POV. Referral made to [facility] for RN,PT,OT, and DEPARTMENT OF NATURAL RESOURCES OFFICER. Pt declining SNF. F2F in folder. SW will continue to follow. GLENIS Brown
--- NOTE | 2016-04-22 15:20 | NUR ---
Social Work-discharge: Data:EMR Reviewed. Pt is on day 3 of hospitalization for CHF per H&P. Pt is ready to discharge home today. PT recommending home with HH vs SNF. SW followed up with pt at bedside who continues to decline SNF placement. SW called Evelio Saurabh at [facility] and informed him of discharge home and provided him with F2F and orders for RN,PT,OT, and APPLE PEELER OPERATOR, access given . PT states he uses home O2 through [facility]. All updated and agreeable to plan. Assessment:Pt who would benefit from HH. Plan:Pt to discharge home today via POV. F2F and orders given to [facility] for RN,PT,OT, and APPLE PEELER OPERATOR. Pt declining SNF. All updated and agreeable to plan. GLEINS Brown
--- NOTE | 2016-04-22 19:58 | NUR ---
Nausea, chest pain Pt c/o nausea this shift, Tums 2 PO given. Pt then stated he was having chest pain, EKG ordered, no changes from previous EKG. Pt then went to the bathroom and had a large amount of stool and emesis. MD notified of emesis. Pt stated he was feeling better after this episode, was sitting in chair having juice and water during shift change report, emesis then resumed.
[2016-04-22] MEDS ORDERED: Pantoprazole 20 mg ER24 Tablet PO ONE (20:15)
[2016-04-22 20:49] LABS: Creatine Kinase 31 U/L (21-232)
--- NOTE | 2016-04-22 20:49 | PCM.PNMED ---
Subjective Date of Service Apr 22, 2016 Subjective Patient stable overnight. No increase in O2 requirement. Patient excited to go home. Prior to discharge, patient cc increase belching. He then complaints of nausea , chest pain thereafter. described as mid substernal. non radiating. He was thus kept overnight for observation for ACS r/o. Nurse reported that he was increasingly worried about whereabouts of his car when paperwork were readied. EKG ordered, unremarkable. First troponin mildly elevated 0.016. Exam Vital Signs Vital Sign - Last Date Time Temp Pulse Resp B/P Pulse Ox O2 Delivery O2 Flow Rate FiO2 04/22/16 20:16 36.7 91 20 170/94 96 Nasal Cannula 4.00 Intake and Output 04/21/16 04/21/16 04/22/16 Cumulative From/Thru 15:00 23:00 07:00 04/19/16 15:11 - 04/22/16 06:41 Intake Total 1400 ml 3800 ml Output Total 2300 ml 9275 ml Balance -900 ml -5475 ml Intake Oral 1400 ml 3800 ml Output Urine Total 2300 ml 9275 ml # Bowel Movements 0 Exam Gen: chronically ill appearing, morbid obese, disheveled. Exam limited by body habitus HEENT: PERRLA, Anicteric sclerae, moist conjunctivae, and no lid lag. Hearing loss b/l ear Neck: neck diameter >19, cannot assess JVD due to body habitus Cardio: Afib. cannot apperciate any murmur, rub, or gallop. Pulm: b/l air sound, no crackles, wheezes, or rhonchi. Normal respiratory effort with no use of accessory muscles. Abd: positive bowel tone. Soft, nontender, nondistended. Extremities: B/L edema, "woody" texture. b/l posterior lower leg weeping-clear fluid. Skin: no erythema on the lower legs. no temperature changes. Neuro: Cranial nerves grossly intact. Normal muscle strength, tone, and bulk. Reflexes, coordination, and sensory function within normal limits. No known gait impairment. Psyc: Normal mood and affect. Alert and oriented to person, place, and time. IVs and Medications Medications Reviewed: Medications were reviewed in detail Lab and Diagnostics Result Diagram: 04/22/16 0535 04/22/16 0535 Assessment & Plan Patient is a morbidly obese, chronically sick 81yom with MHx of COPD on home O2 (2-3L) and portal hypertension presented with 1 week of shortness of breath and chronic productive cough, worse with exertion, requiring 4 L O2 requirement wit baseline home requirement is usually 3, 24hrs. Patient ran out of his Lasix for week and DuoNeb's 4 weeks. Admitted for COPD exacerbation. Acute chest pain, not present on admission, active -- EKG unremarkable. First repeated troponin 0.016, no change from previous. -- Given hx, patient likely had anxiety, possibly dyspepsia. -- Troponin trending x3. CK & CKMB ordered. -- Trial Protonix 20mg Acute on chronic hypoxia, present on admission, active -- Patient requires to 3 L O2 at home, however required 4 L O2 at rest. Desat to the low 80s with activity -- Multifactorial: deconditioning, medication noncompliance,COPD exacerbation -- Influenza screen negative, sputum culture negative pending procalcitonin -- Continue to monitor. Acute COPD exacerbation, present on admission, active -- DuoNeb 4 times a day while awake provided -- Continue home prednisone, Brovana 15 MCG nebulizer twice a day, and budesonide 0.5 mg nebulizer twice a day -- Patient likely has severe COPD, there are no PFT on the chart. Recommend PFT 4-6wks from discharge. Pulmonary hypertension, present on admission, active -- Likely due to a combination of COPD and sleep apnea -- Responded well to diurese with home dosed furosemide 160 mg PO QAM and furosemide 80 mg PO QPM, augment by metolazone -- BMP in the AM Asthma, present admission, active -- Continue Singulair 10 mg at bedtime Obstructive sleep apnea, present on admission, active -- Pulse oximetry on, continuous O2 at night. 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 VTE Prophylaxis: Sub-Q Enoxaparin VTE Mechanical Devices: Intermittant Pneumatic CD Resuscitation Status: CPR: Attempt Resuscitation Attending Statement The patient was seen and examined together with Dr. Thien Fonseca on 04/22/2016 and I have agree with the assessment and plan of care as noted above. Thien Fonseca DO Apr 22, 2016 20:49 Clyde Edmonds MD Apr 23, 2016 14:55
[2016-04-22] MEDS: PARoxetine 20 mg Tablet PO SCH (21:06)
--- NOTE | 2016-04-22 22:00 | DRSVH ---
PROCEDURE: X-RAY CHEST ONE VIEW, PORTABLE ([id number]) INDICATIONS: wet cough TECHNIQUE: One view of the chest was acquired. COMPARISON: [facility], CR, XR CHEST 1VW (PORTABLE), 04/19/2016, 15:37. FINDINGS: Surgical changes and devices: None. Lungs and pleura: No pleural effusions or pneumothorax. Lungs are abnormal with a chronic interstit ial prominence but no pneumonia found. Mediastinum: Mediastinal contours appear normal. Heart size is normal. Bones and chest wall: No suspicious bony lesions. Overlying soft tissues appear unremarkable. IMPRESSION: Chronic interstitial prominence, but no pneumonia found. Dictated by: Everardo Chong M.D. on 04/22/2016 at 21:58 Approved by: Everardo Chong M.D. on 04/22/2016 at 21:58
[2016-04-23] VITALS (11 sets, daily range): BP systolic 113–156; BP diastolic 55–75; PULSE 66–93; RESP 20–24; O2SAT 91–98
--- NOTE | 2016-04-23 05:52 | NUR ---
Emesis, Diarrhea: Pt did have nausea at the beginning of the shift with 600 mls of emesis. Protonix ordered and given; no further nausea. Pt has though been up several times through the night with diarrhea; a total amount of ~ 2200 mls of liquid stool. Is taking PO fluids, water and juice, about 2L in. Cooks page sent to night resident. Troponin done through the night as pt had chest pain on day shift yesterday; denies chest pain through the night. Trop last evening was 0.016, second was 0.024. Labs are ordered for this morning.
[2016-04-23 06:02] LABS: Mean Corpuscular Hemoglobin 28.2 pg (27.0-35.0); Mean Corpuscular Volume 92.5 fL (81-100)
[2016-04-23 06:48] LABS: TROPONIN T 0.03 ug/L (0.0-0.011)
[2016-04-23] MEDS: Albuterol-Ipratropium 3 mL Inhalation Solution NEB SCH ×4 (07:25→19:18)
[2016-04-23] MEDS: Budesonide 0.5 mg/2 mL Inhalation Solution NEB SCH ×2 (07:26→19:18)
[2016-04-23] MEDS: Arformoterol 15 mCg/2 mL Inhalation Solution NEB SCH ×2 (08:30→19:18)
[2016-04-23] MEDS: predniSONE 10 mg Tablet PO SCH (09:00)
[2016-04-23] MEDS: buPROPion SR 150 mg ER12 Tablet PO SCH (09:00)
[2016-04-23] MEDS: Nystatin 100,000 Unit/Gm 15 Gm Powder TOPICAL SCH ×2 (09:01→22:26)
[2016-04-23] MEDS: ALPRAZolam 0.5 mg Tablet PO SCH ×2 (09:01→22:24)
--- NOTE | 2016-04-23 09:19 | PCM.PNMED ---
Subjective Date of Service Apr 23, 2016 Subjective Substernal chest pain with nausea overnight. He required increased O2 satting at 96%. Though, he lives around O2 sat low 90's%. Chest xray done without significant. Trial Protonix alleviates nausea Additionally, he had substantial diarrheal. He denies any abdominal pain, fevers, chills. Patient still states "I feel weak". Exam Vital Signs Vital Sign - Last Date Time Temp Pulse Resp B/P Pulse Ox O2 Delivery O2 Flow Rate FiO2 04/23/16 07:27 93 22 93 Nasal Cannula 5.00 04/23/16 05:11 37.4 141/55 Intake and Output 04/22/16 04/22/16 04/23/16 Cumulative From/Thru 15:00 23:00 07:00 04/19/16 15:11 - 04/22/16 20:12 Intake Total 515 ml 472 ml 4787 ml Output Total 3150 ml 2200 ml 74803 ml Balance -2635 ml -1728 ml -9838 ml Intake Oral 515 ml 472 ml 4787 ml Output Urine Total 3150 ml 1400 ml 33610 ml Emesis 800 ml 800 ml # Bowel Movements 0 Exam Gen: chronically ill appearing, morbid obese, malodorous. Dyspneic lying flat. Exam limited by body habitus HEENT: PERRLA, Anicteric sclerae, moist conjunctivae, and no lid lag. Hearing loss b/l ear Neck: neck diameter >19, cannot assess JVD due to body habitus Cardio: Afib. cannot apperciate any murmur, rub, or gallop. Pulm: b/l air sound, no crackles or rhonchi. Mild wheezes throughout. Abd: positive bowel tone. Soft, nontender, nondistended. Extremities: B/L edema, "woody" texture. b/l posterior lower leg weeping-clear fluid. Skin: no erythema on the lower legs. no temperature changes. Neuro: Cranial nerves grossly intact. equally moving on all 4 limbs Psyc: Normal mood and affect. Alert and oriented to person, place, and time Lab and Diagnostics Result Diagram: 04/23/16 0535 04/23/16 0535 Assessment & Plan Patient is a morbidly obese, chronically sick 81yom with MHx of COPD on home O2 (2-3L) and portal hypertension presented with 1 week of shortness of breath and chronic productive cough, worse with exertion, requiring 4 L O2 requirement wit baseline home requirement is usually 3, 24hrs. Patient ran out of his Lasix for week and DuoNeb's 4 weeks. Admitted for COPD exacerbation. Acute chest pain, not present on admission, active -- EKG unremarkable. First repeated troponin 0.016, no change from previous. -- Given hx, patient likely had anxiety, possibly dyspepsia. -- Troponin continue to elevated however. -- Limited echo ordered: looking for wall motion abn and EF. Will consult cardiology if abnormal. Otherwise NM stress testing. -- Aspirin 81mg daily -- Protonix 20mg daily Acute on chronic respiratory failure. present on admission, stable -- Patient requires to 3 L O2 at home, however required 4 L O2 at rest. Desat to the low 80s with activity -- Multifactorial: deconditioning, medication noncompliance,COPD exacerbation -- Influenza screen negative, sputum culture negative pending procalcitonin -- Continue to monitor. Acute COPD exacerbation, present on admission, active -- DuoNeb 4 times a day while awake provided -- Continue home prednisone, Brovana 15 MCG nebulizer twice a day, and budesonide 0.5 mg nebulizer twice a day -- Patient likely has severe COPD, there are no PFT on the chart. Recommend PFT 4-6wks from discharge. Pulmonary hypertension, present on admission, active -- Likely due to a combination of COPD and sleep apnea -- Diurese well, cont home dosed furosemide 160 mg PO QAM and furosemide 80 mg PO QPM, augment by metolazone -- BMP in the AM Asthma, present admission, active -- Continue Singulair 10 mg at bedtime Obstructive sleep apnea, present on admission, active -- On home CPAP -- Pulse oximetry on, continuous O2 at night. 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 VTE Prophylaxis: Sub-Q Enoxaparin VTE Mechanical Devices: Intermittant Pneumatic CD Resuscitation Status: CPR: Attempt Resuscitation Attending Statement The patient was seen and examined together with Dr. Thien Fonseca on 04/23/2016 and I have agree with the assessment and plan of care as noted above. Thien Fonseca DO Apr 23, 2016 09:19 Clyde Edmonds MD Apr 23, 2016 15:16
--- NOTE | 2016-04-23 15:32 | NUR ---
Social Work-readiness for discharge: Data:EMR Reviewed. Pt is on day 4 of hospitalization for CHF per H&P. cancelled discharge yesterday. PT recommending home with HH vs SNF. Referral has been made to [facility] for RN,PT, OT, and REFRIGERATION SYSTEMS INSTALLER. Pt continues to decline SNF. SW updated Evelio with [facility] that pt did not discharge. SW will continue to follow. Assessment:Pt who would benefit from HH. Plan:Pt to discharge home when medically stable via POV. Referral made to [facility] for RN,PT,OT, and REFRIGERATION SYSTEMS INSTALLER. Pt declining SNF. F2F has been given to [facility] . SW will continue to follow. GLENIS Brown
--- NOTE | 2016-04-23 16:17 | DRSVH ---
[facility] [address] [place] [address] Echocardiogram Report Name: KAT SANTO RStudy Date : 04/23/2016 Height: 72 in Hospital Exam Location: [facility] Weight: 420 lb Gender: Male BSA: 2.9 m2 : 1935 Age: 81 yrs BP: 141/55 mmHg Reason For Study: ELEVATED TROPONIN, CHEST PAIN Ordering Physician: [facility]OSPITALIST [facility] Performed By: Joaquin Mccormack Referring Physician: Dr. Rk Valiente Interpretation Summary The left ventricle is normal in size. The left ventricular ejection fraction is normal. The ejection fraction is estimated to be 65-70%. There has been no significant change since the previous study. There are no focal wall motion abnormalities. The right ventricle is mildly dilated. Right ventricular systolic function is mild to moderately reduced. Right ventricular systolic function has decreased since previous exam. The right ventricular systolic pressure is estimated at 53 mmHg assuming a right atrial pressure of 15 mm Hg. RVSP has increased. Consider pulmonary embolism given the increased RVSP and decreased RV systolic function. The dimensions of the ascending aorta are normal. Procedure: A two-dimensional transthoracic echocardiogram with color flow and Doppler was performed in limited views only. The study quality was technically difficult. Comparison is made with the echocardiogram of 01/02/16. A contrast injection of Definity was performed to improve assessment of LV function. The patient was in atrial fibrillation with controlled ventricular rate during the exam. The patient had a heart rate of 59-77 beats per minute. Left Ventricle: The left ventricle is normal in size. There is normal left ventricular wall thickness. The left ventricular ejection fraction is normal. The ejection fraction is estimated to be 65-70%. There has been no significant change since the previous study. There are no focal wall motion abnormalities. Right Ventricle: The right ventricle is mildly dilated. Right ventricular systolic function is mild to moderately reduced. Right ventricular systolic function has decreased since previous exam. Mitral Valve: There is mild mitral annular calcification. There is trace mitral regurgitation. Aortic Valve: The aortic valve is not well visualized. The aortic valve is mildly calcified. There is no hemodynamically significant valvular aortic stenosis. Tricuspid Valve: The tricuspid valve is not well visualized. There is trace tricuspid regurgitation. The right ventricular systolic pressure is estimated at 53 mmHg assuming a right atrial pressure of 15 mm Hg. Great Vessels: The dimensions of the ascending aorta are normal. The IVC is dilated (diameter is greater than 2.1 cm) and it collapses less than 50% with a sniff. This suggests a high right atrial pressure of 15 mm Hg. MMode/2D Measurements & Calculations LVIDd: 5.4 cm IVC diam asc Aorta LV landon. diameter/BSA LVIDs: 3.7 cm : 3.1 cm Diam: 3.2 cm (cm/m^2): 1.8 FS: 31.6 % IVSd: 0.99 cm LVPWd: 1.0 cm LV sys. diameter/BSA RVD1 (basal) RVD2 (mid) (cm/m^2): 1.3 : 3.7 cm Doppler Measurements & Calculations Ao V2 max MV E max sukhdeep MV E/A: 84.2 TR max sukhdeep : 176.4 cm/sec : 96.3 cm/sec Med Peak E' Sukhdeep : 309.8 cm/sec Ao max PG MV A max sukhdeep TR max PG : 12.4 mmHg : 1.1 cm/sec E/E' med: 19.0 : 38.4 mmHg Ao mean PG : 6.4 mmHg MV dec time Ao V2 mean : 0.27 sec : 118.4 cm/sec Ao V2 VTI: 29.8 cm Reading Physician:JACOB
--- NOTE | 2016-04-23 18:38 | NUR ---
Pt off floor to CT via WC. VSS, no s/sx distress.
--- NOTE | 2016-04-23 18:45 | NUR ---
Activity Pt alternating b/n bedrest and keith-chair, using Barri Bed. 1P assist to get out of bed - needs to have mattress deflated to exit, and assistance with moving legs out of bed. Uses FWW to ambulate, steady on feet. Needs assistance to lock barri chair, bed and pillows. Has SOB with ambulation. Cooperative with care.
--- NOTE | 2016-04-23 19:15 | DRSVH ---
PROCEDURE: CT ANGIO CHEST PULMONARY EMBOLISM ([id number]) INDICATIONS: RVSP elevated. possible PE TECHNIQUE: After the administration of intravenous contrast, 2 mm thick sections acquired from the pulmonary api juan francisco to the posterior costophrenic angles. 3-dimensional maximum intensity projection (MIP) coronal a nd sagittal reformats were then acquired through the thorax. For radiation dose reduction, the follo wing was used: automated exposure control, adjustment of mA and/or kV according to patient size. COMPARISON: None. FINDINGS: Image quality: Excellent. Pulmonary arteries: Pulmonary arteries are normal in size, and demonstrate no intraluminal filling d efects to suggest central pulmonary embolism. Lungs and pleura: There is severe centrilobular emphysema with an apical predominance. Mild atelectas is is present at the bilateral lung bases. Mediastinum: Heart size is normal, without pericardial effusion. No mediastinal or hilar adenopathy . Thoracic aorta is normal in caliber and enhancement. Scattered atheromatous calcifications are pre sent within the aortic arch. Esophagus is normal in caliber, without hiatal hernia. Bones and chest wall: No suspicious bony lesions. Ribs and thoracic spine appear intact throughout. Thyroid gland is unremarkable. No axillary or supraclavicular adenopathy. Abdomen: Visualized upper abdominal solid organs appear normal in the early arterial phase of enhanc ement. IMPRESSION: 1. No acute pulmonary embolus. 2. Severe centrilobular emphysema. Dictated by: Sarahi Parkinson M.D. on 04/23/2016 at 19:08 Approved by: Sarahi Parkinson M.D. on 04/23/2016 at 19:13
[2016-04-23] MEDS: PARoxetine 20 mg Tablet PO SCH (22:25)
[2016-04-24 01:27] VITALS: BP 110/56; PULSE 70; RESP 22; O2SAT 94
--- NOTE | 2016-04-24 03:57 | NUR ---
O2, NPO, BM: Oxygen at 3L NC tonight, CPOX in place. With activity, pt may desat to 89%, while at rest mid 90s. Pt states breathing feels better tonight, as compared to the night before. Has been NPO since midnight as ordered for anticipated stress test later today. Up to the BSC 2-3 times, small amount of liquid stool earlier, currently stool is just loose, not liquid. Able to get much more sleep tonight.
[2016-04-24 05:26] VITALS: BP 136/68; PULSE 65; RESP 24; O2SAT 95
[2016-04-24 05:42] LABS: BASOPHILS % (AUTO) 0.1 % (0-3); EOSINOPHILS % (AUTO) 5.1 % (0-5); MONOCYTES % (AUTO) 15.5 % (4-12); Mean Corpuscular Hemoglobin 28.5 pg (27.0-35.0); Mean Corpuscular Volume 91.6 fL (81-100); NEUTROPHILS % (AUTO) 69.2 % (40-74); Platelet Count 102 bil/L (150-400)
[2016-04-24] MEDS: Albuterol-Ipratropium 3 mL Inhalation Solution NEB SCH ×2 (07:21→16:17)
[2016-04-24] MEDS: Budesonide 0.5 mg/2 mL Inhalation Solution NEB SCH (07:21)
[2016-04-24] MEDS: Arformoterol 15 mCg/2 mL Inhalation Solution NEB SCH (07:21)
[2016-04-24 07:25] VITALS: PULSE 60; RESP 22; O2SAT 95
--- NOTE | 2016-04-24 09:17 | NUR ---
Social Work-continued d/c planning: Data:EMR reviewed. Pt is on day 5 of hospitalization for CHF per H&P. Pt is not medically stable at this time. PT continues to recommend SNF. SW followed up wit pt, SW discussed SNF, SNF choice list provided. Pt is agreeable to SNF, would like a referral to [facility]) and [facility] ( 2nd choice). SW faxed facesheet and PASRR to both facilities and provided access in [facility]. Paperwork in the chart. SW will continue to follow. Assessment:pt who would benefit from SNF. Plan:[facility] choice) and [facility] ( 2nd choice) have been faxed. Paperwork in the chart. SW will continue to follow. GLENIS Brown
[2016-04-24 09:41] VITALS: PULSE 61
[2016-04-24] MEDS: buPROPion SR 150 mg ER12 Tablet PO SCH (09:49)
[2016-04-24] MEDS: Nystatin 100,000 Unit/Gm 15 Gm Powder TOPICAL SCH (09:49)
[2016-04-24] MEDS: ALPRAZolam 0.5 mg Tablet PO SCH (09:49)
[2016-04-24] MEDS: predniSONE 10 mg Tablet PO SCH (09:49)
--- NOTE | 2016-04-24 10:11 | NUR ---
SNF choice list provided. GLENIS Brown
--- NOTE | 2016-04-24 10:11 | NUR ---
[facility] can accept with Dr. Villa to follow. Marcelina Harden MSW
--- NOTE | 2016-04-24 10:36 | NUR ---
Transferred to [facility] Patient transferred to [facility] at 1000. Telemetry Dc'd for the time being. [employer] notified. Addendum: 04/24/16 at 1326 by KAT JENNINGS RN Patient back from [facility] at 1305.
--- NOTE | 2016-04-24 10:57 | NUR ---
[facility] can accept with Dr. Valiente to follow. Marcelina Harden,DIRECTOR OF DISTRIBUTION
[2016-04-24 14:30] VITALS: BP 125/65; PULSE 64; RESP 22; O2SAT 92
--- NOTE | 2016-04-24 14:30 | DRSVH ---
PROCEDURE: 1 DAY PHARMACOLOGICAL STRESS TEST Rest and pharmacological stress myocardial perfusion SPECT; gated images not acquired. RADIOPHARMACEUTICAL: 16.1 mCi Tc-99m tetrafosmin IV at rest and 44.0 mCi Tc-99m tetrafosmin IV at pea k effect of pharmacological stress. Sif-kgr-jdxkznup was performed. INDICATIONS: 81 year-old with hypertension, atrial fibrillation and congestive heart failure. TECHNIQUE: Radiopharmaceutical was injected at peak stress test, and also at rest. SPECT images wer e obtained. SPECT myocardial perfusion images were displayed in short axis, horizontal long axis, an d vertical long axis views. Images were reviewed using [email or web address] software. COMPARISON: None. CARDIAC STRESS: A pharmacologic stress test was performed under the supervision of an attending staff, using an infus ion of River[employer]. Hemodynamic data: There is normal blood pressure and heart rate response to pharmacologic stress. Symptoms: The patient denied anginal chest pain. Aminophylline: n.a. EKG: No diagnostic changes of ischemia; occasional PVCs. FINDINGS: Raw data: There is good myocardial uptake of radiotracer. No significant motion artifacts. Lung-to -heart ratio is 0.38 (normal is less than 0.38 for tetrafosmin tracer). Left ventricle function: Gated images were unable to be obtained for functional assessment, due to i rregular heart rate. Myocardial perfusion: There is mild fixed decreased activity in inferior wall consistent with diaphr agmatic attenuation artifact. There is otherwise normal distribution of activity in the right and lef t ventricular myocardium. IMPRESSION: 1. Normal myocardial perfusion images. No evidence for myocardial ischemia or infarct. 2. Gated images could not obtained because of irregular heart rate. 3. No chest pain or diagnostic EKG changes for ischemia. PQRS ATTESTATIONS: Measure 322 - Is this imaging test primarily performed on a low-risk surgery patient for preoperative evaluation within 30 days preceding their low-risk non-cardiac surgery? Low-risk surgery is defined as cardiac or myocardial infarction less than 1%, including (but not limited to) endoscopic pr ocedures, superficial procedures, cataract surgery, and excisional breast surgery: Answer: No Measure 323 - Is this imaging test performed primarily for the monitoring of an asymptomatic patient who had percutaneous coronary intervention on the visit date or within 2 years of the visit date? An swer: No Measure 324 - Is this imaging test performed primarily for the initial detection and risk assessment on an asymptomatic, low coronary heart disease patient? Low CHD risk definition = clinicians should consider the maximum number of available patient factors used to estimate risk based on [place] (A TP III criteria), typically age, gender, diabetes, smoking status, and use of blood pressure medicati on, and integrate age appropriate estimates for missing elements, such as LDL or standard blood press ure. Answer: No Dictated by: Skinny Judge M.D. on 04/24/2016 at 14:22 Approved by: Skinny Judge M.D. on 04/24/2016 at 14:28
[2016-04-24 16:17] VITALS: PULSE 65; RESP 24; O2SAT 92
[2016-04-24] MEDS ORDERED: TRAZ-115 PO (16:19)
[2016-04-24] MEDS ORDERED: TRAM50TA2 PO (16:19)
--- NOTE | 2016-04-24 16:20 | NUR ---
Social Work-discharge: Data:EMR Reviewed. Pt is on day 5 of hospitalization for CHF per H&P. Pt is medically stable to discharge. PT continues to recommend SNF. CHELSEA spoke with Deonna at [facility] and is agreeable to accept pt today. Karie has arranged transport for 1730. SW updated pt and he is agreeable. SW informed [facility] of pt going to SNF. Rn,UC,pt, and [facility] all updated and agreeable to plan. Assessment:Pt to benefit from SNF. Plan:Pt to discharge to [facility] today via cabulance at 1730. Rn,UC,pt, and [facility] all updated and agreeable to plan. GLENIS Brown
--- NOTE | 2016-04-24 18:02 | NUR ---
Discharge Patient discharge to [facility] at 1800. Gave report to Nikkie TANNER - [facility]. Dc'd IV intact. Dc'd telemetry. Vitals stable. Patient left floor via wheelchair accompanied by [facility] and SALESPERSON JEWELRY with no signs of distress.
--- NOTE | 2016-04-24 21:18 | PCM.DC.MED ---
Discharge Summary Date of Service Apr 24, 2016 Dates of Hospitalization Date of Hospital Admission Apr 19, 2016 at 18:14 Date of Discharge: Apr 24, 2016 Providers: Admitting Physician: Itzel Toney MD Primary Care Physician: Rk Valiente MD Attending Physician: Itzel Toney MD Diagnosis at Time of Discharge Diagnosis at Time of Discharge Acute COPD exacerbation, present on admission,stable Pulmonary Hypertension, present on admission, stable Acute on chronic hypoxia, present on admission, stable Diffuse intertrigo Elevated troponin of unknown significant, Stable Chronic issues known prior to admission, present on admission Essential Hypertension, present on admission,stable. Chronic afib, present on admission, stable Procedures XRay, CTs & MRIs PROCEDURE: CT ANGIO CHEST PULMONARY EMBOLISM INDICATIONS: RVSP elevated. possible PE IMPRESSION: 1. No acute pulmonary embolus. 2. Severe centrilobular emphysema. Dictated by: Sarahi Parkinson M.D. on 04/23/2016 at 19:08 Cardiac Echo Impression Echocardiogram Report Interpretation Summary The left ventricle is normal in size. The left ventricular ejection fraction is normal. The ejection fraction is estimated to be 65-70%. There has been no significant change since the previous study. There are no focal wall motion abnormalities. The right ventricle is mildly dilated. Right ventricular systolic function is mild to moderately reduced. Right ventricular systolic function has decreased since previous exam. The right ventricular systolic pressure is estimated at 53 mmHg assuming a right atrial pressure of 15 mm Hg. RVSP has increased. Consider pulmonary embolism given the increased RVSP and decreased RV systolic function. The dimensions of the ascending aorta are normal. Other Diagnostics PROCEDURE: 1 DAY PHARMACOLOGICAL STRESS TEST INDICATIONS: 81 year-old with hypertension, atrial fibrillation and congestive heart failure. CARDIAC STRESS: A pharmacologic stress test was performed under the supervision of an attending staff, using an infusion of Lexiscan. Hemodynamic data: There is normal blood pressure and heart rate response to pharmacologic stress. Symptoms: The patient denied anginal chest pain. Aminophylline: n.a. EKG: No diagnostic changes of ischemia; occasional PVCs. FINDINGS: Raw data: There is good myocardial uptake of radiotracer. No significant motion artifacts. Qehq-fd-pfslp ratio is 0.38 (normal is less than 0.38 for tetrafosmin tracer). Left ventricle function: Gated images were unable to be obtained for functional assessment, due to irregular heart rate. Myocardial perfusion: There is mild fixed decreased activity in inferior wall consistent with diaphragmatic attenuation artifact. There is otherwise normal distribution of activity in the right and left ventricular myocardium. IMPRESSION: 1. Normal myocardial perfusion images. No evidence for myocardial ischemia or infarct. 2. Gated images could not obtained because of irregular heart rate. 3. No chest pain or diagnostic EKG changes for ischemia. Dictated by: Skinny Judge M.D. on 04/24/2016 at 14:22 Hospital Course Patient is a morbidly obese, chronically sick 81yom with MHx of COPD on home O2 (2-3L) and portal hypertension presented with 1 week of shortness of breath and chronic productive cough, worse with exertion. Patient ran out of his Lasix for 1week and [email or web address]'s 4 weeks. Admitted for COPD exacerbation. Patient was medically stable on the 04/22. Discharge canceled however, as patient felt nauseas with chest pain, troponin trended up. Subsequent EKG, echocardiogram, and stress test were done and assuring. He was discharged without any medication changes. He needs extensive Acute chest pain, not present on admission, resolved -- EKG unremarkable. Troponin plateau at 0.29. Echo and NM stress testing unrevealing -- Given hx, patient likely had anxiety, possibly dyspepsia. Acute on chronic respiratory failure. present on admission, stable -- Patient requires to 3 L O2 at home, however required 4 L O2 at rest. Desat to the low 80s with activity -- Influenza screen negative, sputum culture negative pending procalcitonin -- Multifactorial: deconditioning, medication noncompliance,COPD exacerbation -- He can walk about 25ft before SOB. Rehabilitation maybe limited by severe COPD and patient's motivation -- Recommend setting goals of care. He is a full code per our record. Acute COPD exacerbation, present on admission, active -- Continue home prednisone, Brovana 15 MCG nebulizer twice a day, and budesonide 0.5 mg nebulizer twice a day -- Patient likely has severe COPD, there are no PFT on the chart. Recommend PFT 4-6wks from discharge. -- Severe centrilobular emphysema noted on CT-angio -- Low threshold to start abx should he shows signs of infection. Pulmonary hypertension, present on admission, active -- Estimated [id number] via echo 04/23 -- Likely due to a combination of COPD and sleep apnea -- Diurese well, cont home dosed furosemide 160 mg PO QAM and furosemide 80 mg PO QPM, augment by metolazone Asthma, present admission, active -- Continue Singulair 10 mg at bedtime Obstructive sleep apnea, present on admission, active -- On home CPAP -- Pulse oximetry on, continuous O2 at night. Elevated troponin of uncertain significance, present on admission, stable -- Asymptomatic, no ST changes on EKG -- Troponin downward trending, likely demand ischemia Chronic atrial fibrillation, present on admission, stable -- Rate bradycardic in the 50's, not on any rate control meds, asymptomatic -- Chad2 3pt (5.9% 1yr stroke risk). He is a high fall risk, medication noncompliance however. -- Antithrombotics with aspirin 81mg daily. Essential hypertension, present on admission, stable -- Restarted home lisinopril 10 mg twice a day Anxiety/depression, present on admission,stable -- Cont home Alprazolam, bupropion, and paroxetine Diffuse intertrigo -- Nystatin while in patient Exam Vital Signs (Last) Date Time Temp Pulse Resp B/P Pulse Ox O2 Delivery O2 Flow Rate FiO2 04/24/16 16:17 65 24 92 Nasal Cannula 3.00 04/24/16 14:30 125/65 04/24/16 05:26 36.8 Exam Gen: chronically ill appearing, morbid obese, malodorous. Exam limited by body habitus HEENT: PERRLA, Anicteric sclerae, moist conjunctivae, and no lid lag. Hearing loss b/l ear Neck: neck diameter >19, cannot assess JVD due to body habitus Cardio: Afib. cannot apperciate any murmur, rub, or gallop. Pulm: b/l air sound, no crackles or rhonchi. Mild wheezes throughout. Abd: positive bowel tone. Soft, nontender, nondistended. Extremities: B/L edema, "woody" texture. b/l posterior lower leg weeping-clear fluid. Skin: no erythema on the lower legs. no temperature changes. Neuro: Cranial nerves grossly intact. equally moving on all 4 limbs Psyc: Normal mood and affect. Alert and oriented to person, place, and time Test 04/19/16 15:33 04/19/16 15:51 04/19/16 22:11 04/20/16 05:15 Total Bilirubin 0.7mg/dL (0.0-1.2) Aspartate Amino Transf (AST/SGOT) 19U/L (0-50) Alanine Aminotransferase (ALT/SGPT) 12U/L (0-44) Alkaline Phosphatase 69U/L (25-160) Pro-B-Type Natriuretic Peptide 2142pg/mL (0-486) Total Protein 6.8g/dL (6.4-8.4) Albumin 3.5g/dL (3.4-5.0) Hold Mir Top Tube Received (Received) Urine Color Yellow (YELLOW) Urine Appearance Clear (CLEAR,HAZY) Urine pH 6.0 (5.0-8.0) Urine Specific [place] 1.015 (1.003-1.035) Urine Protein Negativemg/dL (NEG,TRACE) Urine Glucose (UA) Negativemg/dL (NEGATIVE) Urine Ketones Negativemg/dL (NEGATIVE) Urine Occult Blood Moderate (NEGATIVE) Urine Nitrite Negative (NEGATIVE) Urine Bilirubin Negative (NEGATIVE) Urine Urobilinogen Normalmg/dL (NORMAL) Urine Leukocyte Esterase Negative (NEGATIVE) Urine RBC 3-10/hpf (0-2) Urine WBC 0-5/hpf (0-5) Urine Epithelial Cells Occasional/hpf (NONE-MOD) Urine Crystals None seen (NONE SEEN) Urine Bacteria None/hpf (NONE-FEW) Urine Hyaline Casts None/lpf (NONE) Urine Granular Casts None seen (NONE SEEN) Urine Waxy Casts None seen (NONE SEEN) Urine Red Blood Cell Casts None seen (NONE SEEN) Urine White Blood Cell Casts None seen (NONE SEEN) Urine Mucus None seen (None Seen) Urine Trichomonas None seen (NONE SEEN) Urine Yeast None (NONE SEEN) Urine Culture Reflexed Not indicated Hold Urine Received (Received) Magnesium Level 2.0mg/dL (1.6-2.6) Test 04/21/16 05:25 04/22/16 18:00 04/23/16 12:50 04/24/16 05:12 Thyroid Stimulating Hormone (TSH) 2.100uIU/mL (0.450-4.500) Free Thyroxine 1.00ng/dL (0.82-1.77) Total Creatine Kinase 31U/L (21-232) Creatine Kinase MB 2.4ng/mL (0.0-10.4) Creatine Kinase MB % % (0.0-5.0) Troponin T 0.029ug/L (0.0-0.011) White Blood Count 7.4th/mm3 (3.8-10.1) Red Blood Count 3.93mil/mm3 (4.40-5.80) Hemoglobin 11.2g/dL (13.8-17.2) Hematocrit 36.0% (41.0-50.0) Mean Corpuscular Volume 91.6fL (81-100) Mean Corpuscular Hemoglobin 28.5pg (27.0-35.0) Mean Corpuscular Hemoglobin Concent 31.1% (32.0-37.0) Red Cell Distribution Width 14.8% (12.3-15.4) Platelet Count 102bil/L (150-400) Neutrophils (%) (Auto) 69.2% (40-74) Lymphocytes (%) (Auto) 9.8% (14-46) Monocytes (%) (Auto) 15.5% (4-12) Eosinophils (%) (Auto) 5.1% (0-5) Basophils (%) (Auto) 0.1% (0-3) Sodium Level 138mEq/L (134-144) Potassium Level 3.7mEq/L (3.5-5.2) Chloride Level 98mEq/L (97-108) Carbon Dioxide Level 29mmol/L (18-29) Blood Urea Nitrogen 27mg/dL (8-27) Creatinine 1.01mg/dL (0.76-1.27) Estimat Glomerular Filtration Rate 76mL/min (>59) Glucose Level 93mg/dL (60-99) Calcium Level 7.9mg/dL (8.5-10.1) Discharge Medications Discharge Medications Albuterol Neb Soln (Albuterol Neb Soln) 2.5 Mg/3 Ml Vial.neb 3 ML INHALATION QID (Reported) Alprazolam (Alprazolam) 0.5 Mg Tablet 0.5 MG PO BID (Reported) Arformoterol Tartrate (Brovana) 15 Mcg/2 Ml Nebu 15 MCG NEB BID Prescribed by: JUDAH SOLORZANO MD Aspirin Chew (Aspirin Chew) 81 Mg Chew 81 MG PO DAILY (Reported) Budesonide (Pulmicort) 1 Mg/2 Ml Ampul.neb 1 MG IH BID (Reported) Bupropion ER (Bupropion ER) 150 Mg Tablet.er 150 MG PO QAM (Reported) Cyanocobalamin (Vitamin B-12) (Vitamin B-12) 1,000 Mcg Tab.subl 1,000 MCG SL DAILY (Reported) Ferrous Sulfate (Ferrous Sulfate) 325 Mg Tablet 325 MG PO BID (Reported) Furosemide (Furosemide) 80 Mg Tab 160 MG PO QAM (Reported) Furosemide (Lasix) 80 Mg Tablet 80 MG PO QPM (Reported) Lisinopril (Lisinopril) 10 Mg Tablet 10 MG PO BID (Reported) Montelukast (Montelukast) 10 Mg Tablet 10 MG PO HS (Reported) Paroxetine (Paroxetine) 20 Mg Tablet 20 MG PO HS (Reported) Potassium Chloride ER (Klor-Con 10) 10 Meq Tablet.er 10 MEQ PO BID (Reported) Prednisone (PredniSONE) 10 Mg Tablet 10 MG PO QAM (Reported) As needed Albuterol Sulfate (Ventolin HFA Inhaler) 200 Puff/18 Gm Inhaler 1-2 PUFFS INHALATION QID PRN PRN For Shortness of Breath (Reported) Ipratropium/Albuterol Sulfate (Iprat-Albut 0.5-3(2.5) mg/3 mL Inhalant Soln) 3 Ml Ampul.neb 3 ML IH Q6 PRN PRN For Wheezing (Reported) Metolazone (Metolazone) 2.5 Mg Tablet 2.5 MG PO 1-2 xWEEK PRN PRN LE EDEMA ( Reported) Nystatin (Nystop) 60 Gm Powder 1 APPLIC TOPICAL BID PRN PRN rash (Reported) Polyethylene Glycol 3350 (Miralax) 17 Gm Powd.pack 17 GM PO DAILY PRN PRN For Constipation Prescribed by: GAYLA PARRA MD Sennosides (Senna) 8.6 Mg Tablet 8.6 MG PO DAILY PRN PRN For Constipation ( Reported) Tramadol (Tramadol) 50 Mg Tablet 50 MG PO QID PRN PRN For Pain Prescribed by: YAO M YIMI, DO Trazodone (Trazodone) 50 Mg Tablet 25 MG PO HS PRN PRN insom Prescribed by: YAO GELLER DO Followup Plan Discharge Diet: Low fat, Low Sodium Discharge Activity: Other ([facility]) Patient Instructions You were admitted for mild COPD exacerbation. Missing doses of your medication likely was a big factor. Please contact your primary care provider should you run out of medications, need a pharmacy scrip, or feel that you are unable to take your medications. Please make an appt with Dr. Valiente within 1wk for a "Hospital follow-up" Follow-up Provider: Rk Valiente MD Follow-up with PCP in: 1 week Time spent 40 minutes Attending Statement The patient was seen and examined together with Dr. Thien Fonseca on 04/24/2016 and I have added additional information to the note above. copies to: [facility]; Rk Valiente MD, Phuc H DO Apr 24, 2016 21:18 Clyde Edmonds MD Apr 25, 2016 10:59
== END 2016-04-24 17:56 | DRG 190 ==
LOC: EDBD 14:57 → SED 14:57 → EDUNIT# 14:57 → MPC 18:14
PROVIDERS: ADMIT Urology; ATTEND Urology
DX: J44.1 Chronic obstructive pulmonary disease with (acute) exacerbation (principal); J96.20 Acute and chronic respiratory failure, unspecified whether with hypoxia or hypercapnia; Z68.43 Body mass index [BMI] 50.0-59.9, adult; E66.2 Morbid (severe) obesity with alveolar hypoventilation; I27.0 Primary pulmonary hypertension; I50.22 Chronic systolic (congestive) heart failure; Z79.82 Long term (current) use of aspirin; Z79.52 Long term (current) use of systemic steroids; Z86.14 Personal history of Methicillin resistant Staphylococcus aureus infection; Z85.46 Personal history of malignant neoplasm of prostate; Z87.891 Personal history of nicotine dependence; L30.4 Erythema intertrigo; J45.909 Unspecified asthma, uncomplicated; Z91.19 Patient's noncompliance with other medical treatment and regimen

== ENCOUNTER 2016-06-24 20:47 | Inpatient (IN) | payer MEDICARE, OTHER ==
[~2016-06-24] VITALS: Ht 182.9 cm; Wt 184.3 kg
[~2016-06-24 20:47] MED LIST changes: +ALBU18HF INHALATION; +ALBU2.5V4 INHALATION; -ALPR0.5T PO; +ALPR0.5T8 PO; -ASCO-294 PO; -Acetaminophen PO; -Albuterol NEB; -Albuterol/Ipratropium NEB; -BDS.4IN INH; +BUPR150T12 PO; +CYAN100017 SL; -FERR-74 PO; +FERR-83 PO; +IPRA3AMP IH; +LISI10TA PO; +METO2.5T12 PO; -MUPI22OI2 TOPICAL; -NYST1POW23 MC; -NYST1POW25 TOPICAL; +NYST60PO TOPICAL; +SENN-133 PO; -TRAM-14 PO; +TRAM50TA2 PO; +TRAZ-115 PO; -VITA80006 PO
--- NOTE | 2016-06-24 20:52 | ED.REPORT ---
HPI-General Illness Date of Service Jun 24, 2016 ED Provider: Alessandro Fernando MD 81 year old male with a history of CHF, COPD, and chronic lymphedema who is a former smoker presents to the ER via EMS due to several days of progressive shortness of breath. He was seen at his home by medics yesterday for similar, at which time EMS administered breathing treatments that provided some relief of symptoms. However symptoms progressively returned and worsened overnight, which is the cause for his ER visit today. Patient also complains of productive cough with white sputum, though he denies any chest pain, fever, chills,and diaphoresis. He has not taken his Lasix tonight. Nursing Notes Stated Complaint: SHORTNESS OF BREATH Nursing Notes Reviewed: Yes Allergies: Coded Allergies: No Known Allergies (Unverified , 04/19/16) Scheduled Alprazolam (Alprazolam) 0.5 Mg Tablet 0.5 MG PO BID Arformoterol Tartrate (Brovana) 15 Mcg/2 Ml Nebu 15 MCG NEB BID Aspirin Chew (Aspirin Chew) 81 Mg Chew 81 MG PO DAILY Budesonide (Pulmicort) 1 Mg/2 Ml Ampul.neb 1 MG IH BID Bupropion ER (Bupropion ER) 150 Mg Tablet.er 150 MG PO QAM Cyanocobalamin (Vitamin B-12) (Vitamin B-12) 1,000 Mcg Tab.subl 1,000 MCG SL DAILY Ferrous Sulfate (Ferrous Sulfate) 325 Mg Tablet 325 MG PO BIDWM Furosemide (Furosemide) 80 Mg Tab 160 MG PO QAM TAKES 160 MG IN AM AND 80 MG IN AFTERNOON Furosemide (Lasix) 80 Mg Tablet 80 MG PO QPM TAKES 160 MG IN AM AND 80 MG IN AFTERNOON Lisinopril (Lisinopril) 10 Mg Tablet 10 MG PO BID Montelukast (Montelukast) 10 Mg Tablet 10 MG PO HS Paroxetine (Paroxetine) 20 Mg Tablet 20 MG PO HS Potassium Chloride ER (Klor-Con 10) 10 Meq Tablet.er 10 MEQ PO BIDWM Prednisone (PredniSONE) 10 Mg Tablet 10 MG PO QAM Scheduled PRN Albuterol Sulfate (Ventolin HFA Inhaler) 200 Puff/18 Gm Inhaler 1-2 PUFFS INHALATION QID PRN PRN For Shortness of Breath Ipratropium/Albuterol Sulfate (Iprat-Albut 0.5-3(2.5) mg/3 mL Inhalant Soln) 3 Ml Ampul.neb 3 ML IH Q6 PRN PRN For Wheezing Metolazone (Metolazone) 2.5 Mg Tablet 2.5 MG PO 1-2 xWEEK PRN PRN LE EDEMA Nystatin (Nystop) 60 Gm Powder 1 APPLIC TOPICAL BID PRN PRN rash Polyethylene Glycol 3350 (Miralax) 17 Gm Powd.pack 17 GM PO DAILY PRN PRN For Constipation Sennosides (Senna) 8.6 Mg Tablet 8.6 MG PO DAILY PRN PRN For Constipation Tramadol (Tramadol) 50 Mg Tablet 50 MG PO QID PRN PRN For Pain Trazodone (Trazodone) 50 Mg Tablet 25 MG PO HS PRN PRN insom General Time Seen by MD: 20:52 Chief Complaint Other (Shortness of Breath) Hx Obtained From: Patient Arrived By: Ambulance Sudden in Onset?: No Onset Occurred: 3 days ago Symptom Duration: Since onset Associated with: Reports: Cough, Denies: Chest pain, Diaphoresis, Fever, Nausea, Vomiting Context Related History: Reports COPD Similar Sx Previous: Yes Past Medical History Past Medical History Notes: Admitted January 23 through 01/30/2015 for pneumonia culturing positive for Moraxella catarrhalis Past Medical History Severe COPD, history of hypoxic hypercarbic respiratory failure, also obesity hypoventilation syndrome and sleep apnea On home O2 Morbid obesity Pulmonary hypertension Insomnia Obstructive Sleep Apnea Depression Gout Cellulitis MRSA Reports: Cancer, Congestive heart failure, Hypertension Reports: Atrial fibrillation Past Surgical History Prostatectomy for prostate CA Cholecystectomy Appendectomy White knee arthroplasty Family History Mother () bladder cancer Smoking History Former Smoker Social History Lives with . Alcohol Use: Denies alcohol use Drug Use: Denies drug use Ambulatory Status Cane Review of Systems Full Review of Systems Constitutional: Denies: Chills, Fatigue, Fever, Lethargy Respiratory: Reports: Prod cough, white, Shortness of breath, Wheezing Cardiovascular: Denies: Chest pain GI: Denies: Nausea, Vomiting Skin: Denies Diaphoresis Complete sys rev & neg: except as marked. Physical Exam Vital Signs Vital Signs Date Time Temp Pulse Resp B/P Pulse Ox O2 Delivery O2 Flow Rate FiO2 06/24/16 21:01 36.5 75 22 143/73 100 Simple Mask 8 Nasal Cannula Initial VS: Reviewed Head / Eyes: Atraumatic, Normocephalic Neck: Supple, Non-tender, Full range of motion Abdomen / GI: Soft, Non-tender, No guarding, No rebound, No distention Skin: Warm, Dry, No cyanosis Neurologic: Alert, Oriented, Nonfocal General/Constitutional: Awake, Alert, Well developed Distress / Hydration: Positive: Distress mild Appearance / Presentation: Positive: Obese, morbidly Wheezing / Retractions: Positive: Wheeze insp/exp diffuse, Wheezing severe Rales / Rhonchi: Positive: Rales diffuse (severe) Breathing through nebulizer. Cardiovascular: No gallop, No murmurs, No rubs Heart Rate / Rhythm: Positive: Irregular rhythm Lower Ext Edema: Positive: Bilateral 3+ Ankle / Foot: Full range of motion, Neurologic intact, Vascular intact Fungal nails, bilaterally. Interpretation & Diagnostics Lab Results Interpretation Result Diagram: 06/24/16204406/24/162044 Test 06/24/16 20:45 White Blood Count 10.5th/mm3 (3.8-10.1) Red Blood Count 4.15mil/mm3 (4.40-5.80) Hemoglobin 11.7g/dL (13.8-17.2) Hematocrit 39.2% (41.0-50.0) Mean Corpuscular Volume 94.5fL (81-100) Mean Corpuscular Hemoglobin 28.2pg (27.0-35.0) Mean Corpuscular Hemoglobin Concent 29.8% (32.0-37.0) Red Cell Distribution Width 15.5% (12.3-15.4) Platelet Count 151bil/L (150-400) Neutrophils (%) (Auto) 66.8% (40-74) Lymphocytes (%) (Auto) 15.0% (14-46) Monocytes (%) (Auto) 11.1% (4-12) Eosinophils (%) (Auto) 6.6% (0-5) Basophils (%) (Auto) 0.3% (0-3) Activated Partial Thromboplast Time 26.6sec (22.8-33.0) Sodium Level 140mEq/L (134-144) Potassium Level 4.9mEq/L (3.5-5.2) Chloride Level 100mEq/L (97-108) Carbon Dioxide Level 27mmol/L (18-29) Blood Urea Nitrogen 45mg/dL (8-27) Creatinine 1.55mg/dL (0.76-1.27) Estimat Glomerular Filtration Rate 46mL/min (>59) Glucose Level 95mg/dL (60-99) Calcium Level 9.2mg/dL (8.5-10.1) Magnesium Level 2.3mg/dL (1.6-2.6) Total Bilirubin 0.2mg/dL (0.0-1.2) Aspartate Amino Transf (AST/SGOT) 19U/L (0-50) Alanine Aminotransferase (ALT/SGPT) 20U/L (0-44) Alkaline Phosphatase 70U/L (25-160) Troponin T 0.023ug/L (0.0-0.011) Pro-B-Type Natriuretic Peptide 484.5pg/mL (0-486) Total Protein 7.2g/dL (6.4-8.4) Albumin 3.6g/dL (3.4-5.0) ECG Interpretation ECG Interpretation: Atrial fibrillation, rate 88 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 The latter could be commissary representative of edema vs developing air space disease. Dictated by: Juliane Mcclure M.D. on 06/24/2016 at 21:40 Approved by: Juliane Mcclure M.D. on 06/24/2016 at 21:42 View: Portable, 1 view Interpretation / Wet Read by: Interpret - Radiologist Re-Eval/Medical Decision Med Decision/Clinical Course 81-year-old male with CHF and COPD presents with progressive dyspnea. He has increased edema. He has evidence of CHF on chest x-ray, and an elevated troponin out of proportion to his elevated creatinine. Admitted now for diuresis. He is received Lasix here and has had a 2 L diuresis with clinical improvement. His cardiac enzymes need to be trended and consider cardiac echo to evaluate his cardiac function. Transported now in improved condition. Source of Hx: Old records Time of Eval: 22:42 Re-Evaluation/Progress Note: Improved, 2L urine off. Discussed lab and radiology results and need for admission. Patient is amenable to the plan. All other questions addressed. Consultation : Referral / Consult Name: Ector Prieto MD Consulted With: Hospitalist Call Returned at: 22:13 Certified Welder: Agrees with eval, Agrees with plan, Accepts admit Counseled Regarding: Diagnosis, Lab results, Need for admission Discharge & Departure Primary Impression: CHF (congestive heart failure) Additional Impressions: Elevated troponin COPD (chronic obstructive pulmonary disease) Dyspnea Disposition: ADMITTED TO HOSPITAL Discharge Condition All VS Reviewed: Yes Condition: Stable Referrals: Rk Valiente MD (PCP) Crit Care Except Billable Proc Time Spent: 30-74 minutes Services Performed: Patient management by me, Time spent at bedside, Reviewing test results, Reviewing imaging, Discussing patient care, Documentation in record Scribe Attestation Portions of this note were transcribed by Osmel Smith. I, Dr. Fernando, personally performed the history, physical exam and medical decision-making; I reviewed and confirmed the accuracy of the information in the transcribed note. Signed by: Rena Bond. 06/24/2016 - 22:44 copies to: Rk Valiente MD, Christopher W MD Jun 24, 2016 20:52 SOMEL SMITH Jun 24, 2016 21:06
[2016-06-24] MEDS ORDERED: MethylprednisoLONE Sodium Succinate 62.5 mg/mL 2 mL Inj IVPUSH ONE (21:00)
[2016-06-24] MEDS ORDERED: Furosemide 10 mg/mL 10 mL Inj IVPUSH ONE (21:00)
[2016-06-24 21:01] VITALS: BP 143/73; PULSE 75; RESP 22; O2SAT 100
[2016-06-24 21:09] LABS: BASOPHILS % (AUTO) 0.3 % (0-3); EOSINOPHILS % (AUTO) 6.6 % (0-5); MONOCYTES % (AUTO) 11.1 % (4-12); Mean Corpuscular Hemoglobin 28.2 pg (27.0-35.0); Mean Corpuscular Volume 94.5 fL (81-100); NEUTROPHILS % (AUTO) 66.8 % (40-74); Platelet Count 151 bil/L (150-400)
[2016-06-24 21:35] LABS: TROPONIN T 0.023 ug/L (0.0-0.011)
--- NOTE | 2016-06-24 21:44 | DRSVH ---
PROCEDURE: X-RAY CHEST ONE VIEW, PORTABLE ([id number]) INDICATIONS: SOB TECHNIQUE: One view of the chest was acquired. COMPARISON: [facility], CR, XR CHEST 1VW (PORTABLE), 04/22/2016, 21:21. FINDINGS: Surgical changes and devices: None. Lungs and pleura: No pleural effusions or pneumothorax. Increased pulmonary vascularity. Coarsened bibasilar opacities. Mediastinum: Mediastinal contours appear normal. Heart size is normal. Bones and chest wall: No suspicious bony lesions. Overlying soft tissues appear unremarkable. IMPRESSION: Increased pulmonary vascularity with coarsened bibasilar opacities. The latter could be benefits representative of edema vs developing air space disease. Dictated by: Juliane Mcclure M.D. on 06/24/2016 at 21:40 Approved by: Juliane Mcclure M.D. on 06/24/2016 at 21:42
[2016-06-24 21:47] LABS: Magnesium 2.3 mg/dL (1.6-2.6)
[2016-06-24] MEDS ORDERED: Heparin 5,000 Unit/mL Inj IVPUSH ONE (22:15)
[2016-06-24] MEDS ORDERED: Heparin 25K Unit/500mL 0.45 NS 25,000 UNIT in IV Premix 1 EACH IV ONE (22:15)
[2016-06-24] MEDS ORDERED: Senna-Docusate 8.6-50 mg Tablet PO PRN (23:15)
[2016-06-24] MEDS ORDERED: Alum-Mag Hydrox-Simeth 30 mL Suspension PO PRN (23:15)
[2016-06-24] MEDS ORDERED: Polyethylene Glycol (PEG) 17 Gm Powder PO PRN (23:15)
[2016-06-24] MEDS ORDERED: Ondansetron 2 mg/mL 2 mL Inj IVPUSH PRN (23:15)
[2016-06-24 23:45] VITALS: BP 147/53; PULSE 82; RESP 26; O2SAT 99
--- NOTE | 2016-06-24 23:49 | PCM.HPMED ---
Subjective Date of Service Jun 24, 2016 Primary Provider: Admitting Physician: Ector Prieto MD Primary Care Physician: Rk Valiente MD Attending Physician: Ector Prieto MD Admit Status: From the Emergency Department, [facility] Telemetry Chief Complaint: Shortness of breath History of Present Illness: Mr. Sarath Weiss is a 81 yo morbidly obese man with complex history of O2- dependent COPD with chronic respiratory failure, diastolic CHF, chronic lymphedema, chronic Afib, NGOZI, and depression and hypertension brought to the ED by EMS for progressively worsening shortness of breath in the last week. Patient admits to severe dyspnea, productive cough, and increased leg edema that he had to call the medics last night. He was seen at his home by medics and was administered breathing treatments that provided some relief of symptoms. Patient states "I should have come but I talked myself out of it." However, his symptoms progressively returned and worsened overnight, which is the cause for his ER visit today. Patient has been to the hospital multiple times for similar symptoms in the past. Patient reports worsening of the chronic cough and has some thick white sputum production. He denies any chest pain, palpitations, fever, chills, and diaphoresis. He is on home oxygen typically at 2 L but has required 3 L in the last few days. The inhalers does not give him any relief. He is having a hard time taking care of himself since his has been sicker than him, and thus he has been very depressed and stressed. He reports to sleep while sitting up and has about 3 hours of sleep per night. Patient is pretty much bed bound and is only able to ambulate to the bathroom. Patient admits that he has been so fatigue the last couple days that he has not taken any of his medications for 2 days. He states that he does not know what medications to take because every time he is in the hospital, his medications got changed and he cannot see his PCP for months. In the ED, patient needs 8L of O2 to sat around 99%. Vitals otherwise normal. Labs showed WBC 10.5, Hgb 11.7, BUN 45, Cr 1.55, BNP 484, Troponin 0.023. CXR showed increased pulmonary vascularity with coarsened bibasilar opacities. EKG showed Afib at HR 88. Patient was given a dose of Solu-Medro 125mg, Lasix 80mg IV, and started on Heparin drip. Review of Systems: A comprehensive review of systems was conducted with the patient and found to be negative except as above in the History of Present Illness. Allergies Coded Allergies: No Known Allergies (Unverified , 04/19/16) Home Medications Scheduled Albuterol Neb Soln (Albuterol Neb Soln) 2.5 Mg/3 Ml Vial.neb 3 ML INHALATION QID Alprazolam (Alprazolam) 0.5 Mg Tablet 0.5 MG PO BID Arformoterol Tartrate (Brovana) 15 Mcg/2 Ml Nebu 15 MCG NEB BID Aspirin Chew (Aspirin Chew) 81 Mg Chew 81 MG PO DAILY Budesonide (Pulmicort) 1 Mg/2 Ml Ampul.neb 1 MG IH BID Bupropion ER (Bupropion ER) 150 Mg Tablet.er 150 MG PO QAM Cyanocobalamin (Vitamin B-12) (Vitamin B-12) 1,000 Mcg Tab.subl 1,000 MCG SL DAILY Ferrous Sulfate (Ferrous Sulfate) 325 Mg Tablet 325 MG PO BID Furosemide (Furosemide) 80 Mg Tab 160 MG PO QAM Furosemide (Lasix) 80 Mg Tablet 80 MG PO QPM Lisinopril (Lisinopril) 10 Mg Tablet 10 MG PO BID Montelukast (Montelukast) 10 Mg Tablet 10 MG PO HS Paroxetine (Paroxetine) 20 Mg Tablet 20 MG PO HS Potassium Chloride ER (Klor-Con 10) 10 Meq Tablet.er 10 MEQ PO BID Prednisone (PredniSONE) 10 Mg Tablet 10 MG PO QAM Scheduled PRN Albuterol Sulfate (Ventolin HFA Inhaler) 200 Puff/18 Gm Inhaler 1-2 PUFFS INHALATION QID PRN PRN For Shortness of Breath Ipratropium/Albuterol Sulfate (Iprat-Albut 0.5-3(2.5) mg/3 mL Inhalant Soln) 3 Ml Ampul.neb 3 ML IH Q6 PRN PRN For Wheezing Metolazone (Metolazone) 2.5 Mg Tablet 2.5 MG PO 1-2 xWEEK PRN PRN LE EDEMA Nystatin (Nystop) 60 Gm Powder 1 APPLIC TOPICAL BID PRN PRN rash Polyethylene Glycol 3350 (Miralax) 17 Gm Powd.pack 17 GM PO DAILY PRN PRN For Constipation Sennosides (Senna) 8.6 Mg Tablet 8.6 MG PO DAILY PRN PRN For Constipation Tramadol (Tramadol) 50 Mg Tablet 50 MG PO QID PRN PRN For Pain Trazodone (Trazodone) 50 Mg Tablet 25 MG PO HS PRN PRN insom PMH 1. COPD (on 2 L of oxygen and daily prednisone at home). 2. Diastolic congestive heart failure. 3. Pulmonary hypertension. 4. Obstructive sleep apnea (not on CPAP). 5. Hypertension. 6. Atrial fibrillation (not on Coumadin due apparently to a prior history of nose bleed). 7. Morbid obesity. 8. Depression. 9. Anxiety. 10. Insomnia. 11. Chronic lower extremity edema. 12. History of prostate cancer status post prostatectomy. 13. Gout. 14. Status post cholecystectomy. 15. Status post appendectomy. 16. Status post right knee surgery. 17. Status post prostatectomy. 18. Recent hospitalization in late December or early January of 2016 and treated for Moraxella catarrhalis pneumonia. 19. Hypoxemic hypercapnic respiratory failure in the past with recent admission in March 2016. Surgical History Appendectomy Cholecystectomy Right knee replacement Radical prostatectomy Family History Patient denies any family history of heart disease Mother had Bladder Cancer Brother had Brain Cancer Social History Hx Alcohol Use: Yes (admits to drinking 1 beer/night to help him sleep) Hx Substance Use: No Hx Tobacco Use: Yes (quit 27 years ago) Smoking Status: Former Smoker Living Arrangement: with Family Additional Information Lives with at home. Reports to ambulate without any assistance but only walk from chair to the bathroom. PCP is Dr. Rk Valiente. Exam Vital Signs Vital Sign - Last Date Time Temp Pulse Resp B/P Pulse Ox O2 Delivery O2 Flow Rate FiO2 06/24/16 21:01 36.5 75 22 143/73 100 Simple Mask 8 Nasal Cannula Exam General: Morbidly obese, chronically ill appearance. Alert, Oriented X3, Cooperative, Conversational dyspnea, Mild respiratory distress Eyes: PERRLA, Scleral Anicteric Mouth: Mouth Normal, Mucous Membranes Moist/[place] Neck: Supple, no Thyromegaly, trachea central. Difficult to assess JVD due to large neck circumference Chest & Lungs: Diffuse coarse rales throughout with moderate/scattered insp/ exp wheezes. Cardiovascular: Irregular irregular rhythm. No Murmurs/Rubs/Gallops. Pulses: Radial (present and equal), Unable to appreciate Dorsalis Pedis. Abdomen: Obese, Soft, Non-tender, Non-distended, Normoactive bowel tones. Extremities: Severe lymphedema in bilateral legs from the knees down with white verrucous hyperplasia and discoloration. Severe pedal pitting edema with fungal nails. Neurological: Grossly neurologically intact, has generalized weakness, Normal Speech, Sensation Intact Lymphatic: Lymph nodes Cervical and Axillary not palpable Lab and Diagnostics Result Diagram: 06/24/16204406/24/162044 X-Rays, CTs and MRIs PROCEDURE: X-RAY CHEST ONE VIEW, PORTABLE IMPRESSION: Increased pulmonary vascularity with coarsened bibasilar opacities. The latter could be apprenticeship representative of edema vs developing air space disease. Dictated by: Juliane Mclcure M.D. on 06/24/2016 at 21:40 Approved by: Juliane Mcclure M.D. on 06/24/2016 at 21:42 12-lead ECG Atrial fibrillation rate 88. 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 No acute ST changes. Cardiac Echo Impressions Most Recent Echo Interpretation Summary by Dr. Vladimir Wilks on 04/23/16: The left ventricle is normal in size. The left ventricular ejection fraction is normal. The ejection fraction is estimated to be 65-70%. There has been no significant change since the previous study. There are no focal wall motion abnormalities. The right ventricle is mildly dilated. Right ventricular systolic function is mild to moderately reduced. Right ventricular systolic function has decreased since previous exam. The right ventricular systolic pressure is estimated at 53 mmHg assuming a right atrial pressure of 15 mm Hg. RVSP has increased. Consider pulmonary embolism given the increased RVSP and decreased RV systolic function. The dimensions of the ascending aorta are normal. Assessment & Plan 81 yo morbidly obese man with complex history of O2-dependent COPD with chronic respiratory failure, diastolic CHF, chronic lymphedema, chronic Afib, NGOZI, and depression and hypertension brought to the ED by EMS for progressively worsening shortness of breath in the last week 1. Acute on chronic hypoxemic respiratory failure. Present on admission. Active. - Patient requires 3 L O2 at home, however required 8 L O2 at rest on admission. - Multifactorial: deconditioning, medication noncompliance,COPD exacerbation, CHF decompensation. - Continue O2 supplement. Treat the underlying cause(s). - Rehabilitation maybe limited by severe COPD and patient's motivation. Will have PT evaluation in the morning. Patient might need to be discharged to a SNF due to inability to care for self at home. 2. Acute on Chronic diastolic heart failure. Present on admission. Active. - secondary to non compliance with medications. - Patient presents with increase dyspnea, fatigue, edema, and cough. - The right ventricular systolic pressure is estimated at 53 mmHg via echo . - Lasix home dose is supposed to be 160mg PO QAM and 80mg QPM. Will start with Lasix 80 mg IV daily and consider increase to BID if tolerates well. - Monitor Potassium and replete as needed. - Will hold Metolazone in the hospital. Will resume at discharge. - Strict I/O and daily standing weight. - Fluid restriction to 1500mls/24 hours. 3. Acute on chronic obstructive pulmonary disease exacerbation, present on admission. Active. - continuing systemic steroids: Prednisone 40 mg daily, received Solu-Medrol 125 mg IV in the ED. - No signs infection identified at this time. Low threshold to start abx should he shows signs of infection. - Recent PFT on 06/14 showed severe airflow obstruction and severely reduced diffusing capacity with air trapping. - bronchodilator therapy with DuoNeb scheduled. - continue Brovana, Singulair and Budesonide - continue oxygen supplementation with target 88-92 % 4. Chronic Atrial fibrillation, currently rate controlled. Present on admission. Active. - not currently on anticoagulations or rate control medications. - Chads score of 3. However, he is a high fall risk and medication noncompliance. - Antithrombotics with aspirin 81mg daily. - Monitor Tele 5. Elevated troponin of uncertain significance, present on admission, active. - Asymptomatic, no ST changes on EKG - Troponin was 0.023 on admission, likely demand ischemia. - Will continue to trend Trop and monitor Tele. 6. Acute kidney injury, present on admission, active. - BUN 45 and Cr 1.55, which are elevated from baseline (Cr around 1.0). - Avoid nephrotoxic drug and will hold Lisinopril. - Continue to monitor. 7. Hypertension. Chronic. Stable. - Hold Lisinopril due to DORIAN. - Continue to monitor 8. Depression. Chronic. Presume stable. - continuing Paroxetine 20 mg daily, Bupropion 150mg daily, and Alprazolam 0.5mg BID. 9. Diffuse intertrigo. Chronic. Active. - Nystatin while in patient. - Patient had dry skin and severe fungal nail. He reported to unable to care for self. - Consult family welfare social work professor to assess living situation and possible discharge to SNF. 10. Obstructive sleep apnea, present on admission, active - On home CPAP - Pulse oximetry on, continuous O2 at night. CODE STATUS: FULL CODE per the patient. Might consider palliative care consult for goals of care. - Acetaminophen as needed for mild pain/fever/headache - Bowel regimen as needed - Antiemetic as needed Patient admitted under inpatient status with expected length of stay > 2 midnights for severity of present symptoms, complexities of treatment plan and risk for adverse event Pain Evaluation: Adequate Pain Control GI Prophylaxis: H2 holger VTE Prophylaxis: Sub-Q Heparin (Unfractionated) Resuscitation Status: CPR: Attempt Resuscitation Attending Statement The patient was seen and examined together with Dr. Camara on 06/24 and I agree with the history, exam and plan as outlined in the note above. copies to: Rk Valiente MD, Ngochanh H DO Jun 24, 2016 23:49 Ector Prieto MD Jun 25, 2016 06:44
[2016-06-25] VITALS (15 sets, daily range): BP systolic 128–174; BP diastolic 60–84; PULSE 68–94; RESP 18–26; O2SAT 94–99
[2016-06-25 00:12] LABS: APPEARANCE,URINE HAZY (CLEAR,HAZY); COLOR,URINE STRAW (YELLOW); OCCULT BLOOD,URINE TRACE (NEGATIVE); UROBILINOGEN,URINE NORMAL (NORMAL)
[2016-06-25] MEDS: Sodium Chloride LOK Flush 10 mL Syringe IVFLUSH SCH ×3 (00:30→16:32)
[2016-06-25] MEDS ORDERED: Albuterol 2.5 mg/3 mL Inhalation Solution NEB PRN (02:33)
[2016-06-25] MEDS: Benzocaine-Menthol Lozenge 2/Pkg PO PRN ×6 (03:07→23:15)
[2016-06-25 04:46] LABS: BASOPHILS % (AUTO) 0.1 % (0-3); EOSINOPHILS % (AUTO) 0.1 % (0-5); MONOCYTES % (AUTO) 0.4 % (4-12); Mean Corpuscular Hemoglobin 27.7 pg (27.0-35.0); NEUTROPHILS % (AUTO) 95.5 % (40-74); Platelet Count 143 bil/L (150-400)
[2016-06-25 04:55] LABS: TROPONIN T 0.011 ug/L (0.0-0.011)
[2016-06-25 05:12] LABS: Magnesium 2.2 mg/dL (1.6-2.6)
--- NOTE | 2016-06-25 06:11 | NUR ---
Admit Pt arrived to [facility] room 2002 at approx. 0000 from ED via bed; report received from Lex Diggs RN. Pt AOx3, able to GUTIÉRREZ, walked from ED stretcher to bed. Standing weight obtained. Pt on 3L NC, CPOX in place, SpO2 95-98%. VSS. Tele afib 80s. Admit documentation and med rec completed. CHF booklet given to pt. [facility] bed in place for pt; pt able to reposition self in bed. Powder applied to folds and lotion applied to BLE.
[2016-06-25] MEDS: Albuterol-Ipratropium 3 mL Inhalation Solution NEB SCH ×5 (06:16→20:30)
[2016-06-25] MEDS ORDERED: predniSONE 20 mg Tablet PO SCH (08:30)
[2016-06-25] MEDS: Heparin 5,000 Unit/mL Inj SUBQ SCH ×2 (09:01→16:32)
[2016-06-25] MEDS: ALPRAZolam 0.5 mg Tablet PO SCH ×2 (09:02→20:30)
[2016-06-25] MEDS: Furosemide 10 mg/mL 10 mL Inj IVPUSH SCH (09:02)
[2016-06-25] MEDS: buPROPion XL 150 mg ER24 Tablet PO SCH (09:03)
[2016-06-25] MEDS: Budesonide 0.5 mg/2 mL Inhalation Solution NEB SCH ×2 (09:50→20:30)
[2016-06-25] MEDS: Arformoterol 15 mCg/2 mL Inhalation Solution NEB SCH ×2 (09:53→20:30)
--- NOTE | 2016-06-25 15:31 | NUR ---
Social Work: Initial Assessment Data: Pt is a 81 y/o male admitted for CHF elevated trop COPD. Pt's PCP is Dr Valiente, pt's insurance is Medicare with [employer]. EMR reviewed. Readmit score is 6, high. MOTOR SETTER met with pt at bedside, role explained. Pt states he lives in [place] with his in a single story home where he uses a cane. Pt drives, has hx with HH and SNF spending time at [facility] recently. Pt has no LTC or VA benefits, is not a caregiver. MOTOR SETTER offered pt [facility] reference book, pt accepted it. MOTOR SETTER discussed options in it including assisted living and private pay caregiving, pt states he does not want assisted living. MOTOR SETTER asked pt about HH, HH choice list given. Pt states preference is [facility]. MOTOR SETTER referred pt to [facility], access given, F2F in MOTOR SETTER folder. MOTOR SETTER will continue to follow for possible d/c needs. Assessment: Pt who is independent at baseline. Plan: Pt will likely d/c home via POV when medically stable with [facility]. MOTOR SETTER will continue to follow for possible d/c needs. GLENIS Abdi Addendum: 06/25/16 at 1541 by CINDA PATEL Amended: Links added.
--- NOTE | 2016-06-25 17:39 | NUR ---
Activity A&O x3. Patient in bariatric bed and able to reposition self independently using grab bar. SBA to the bedside commode. VSS. SPO2 in the mid 90s on 4L NC up from baseline home O2 of 2-3L. mild dyspnea with exertion. Productive cough and some crackles/wheezing heard on expiration. Denies pain. Redness/maceration in skin folds, nystatin cream applied per order. Dry cracked on skin bilateral LE, lotion applied several times for comfort. Patient resting in bed, call light within reach.
--- NOTE | 2016-06-25 19:47 | PCM.PNMED ---
Subjective Date of Service Jun 25, 2016 Subjective Patient states he is doing well, he has noticed his breathing has improved. He still complains of a cough which has been worsening over the last week. He expresses frustration that last time he was discharged from the hospital he lost the list of the medications he was supposed to be taking and how he was supposed to be taking them. Additionally he states he is unable to do self- care such as rubbing lotion on his legs. He is receiving a nebulizer treatment at time of evaluation and says he feels warm. He denies any chest pain, lightheadedness, dizziness, abdominal pain, nausea, diarrhea or constipation. Exam Vital Signs Vital Sign - Last Date Time Temp Pulse Resp B/P Pulse Ox O2 Delivery O2 Flow Rate FiO2 06/25/16 18:16 80 20 96 Nasal Cannula 3.00 06/25/16 16:25 36.7 156/66 Intake and Output 06/24/16 06/24/16 06/25/16 Cumulative From/Thru 14:59 22:59 06:59 06/24/16 21:01 - 06/25/16 05:51 Intake Total 923 ml 923 ml Output Total 2675 ml 2675 ml Balance -1752 ml -1752 ml Intake Oral 826 ml 826 ml IV Total 97 ml 97 ml Output Urine Total 2675 ml 2675 ml Exam General: Morbidly obese, chronically ill appearance. Alert, Oriented X3, Cooperative, Conversational dyspnea, Mild respiratory distress Eyes: PERRLA, Scleral Anicteric Mouth: Mouth Normal, Mucous Membranes Moist/[place] Neck: Supple, no Thyromegaly, trachea central. Difficult to assess JVD due to large neck circumference Chest & Lungs: Diffuse coarse rales throughout with moderate/scattered insp/ exp wheezes. Cardiovascular: Irregular irregular rhythm. No Rubs/Gallops. + systolic murmur Pulses: Radial (present and equal), Unable to appreciate Dorsalis Pedis. Abdomen: Obese, Soft, Non-tender, Non-distended, Normoactive bowel tones. Extremities: Severe lymphedema in bilateral legs from the knees down with white verrucous hyperplasia and discoloration. Severe pedal pitting edema with fungal nails. Neurological: Grossly neurologically intact, has generalized weakness, Normal Speech, Sensation Intact Lymphatic: Lymph nodes Cervical and Axillary not palpable IVs and Medications Medications Reviewed: Medications were reviewed in detail Lab and Diagnostics Result Diagram: 06/25/1639906/25/16399 X-Rays, CTs and MRIs PROCEDURE: X-RAY CHEST ONE VIEW, PORTABLE IMPRESSION: Increased pulmonary vascularity with coarsened bibasilar opacities. The latter could be outside sales representative insurance of edema vs developing air space disease. Dictated by: Juliane Mcclure M.D. on 06/24/2016 at 21:40 Approved by: Juliane Mcclure M.D. on 06/24/2016 at 21:42 12-lead ECG Atrial fibrillation rate 88. 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 No acute ST changes. Cardiac Echo Impressions Most Recent Echo Interpretation Summary by Dr. Vladimir Wilks on 04/23/16: The left ventricle is normal in size. The left ventricular ejection fraction is normal. The ejection fraction is estimated to be 65-70%. There has been no significant change since the previous study. There are no focal wall motion abnormalities. The right ventricle is mildly dilated. Right ventricular systolic function is mild to moderately reduced. Right ventricular systolic function has decreased since previous exam. The right ventricular systolic pressure is estimated at 53 mmHg assuming a right atrial pressure of 15 mm Hg. RVSP has increased. Consider pulmonary embolism given the increased RVSP and decreased RV systolic function. The dimensions of the ascending aorta are normal. Assessment & Plan 81 yo morbidly obese man with complex history of O2-dependent COPD with chronic respiratory failure, diastolic CHF, chronic lymphedema, chronic Afib, NGOZI, and depression and hypertension brought to the ED by EMS for progressively worsening shortness of breath in the last week 1. Acute on chronic hypoxemic respiratory failure. Present on admission. Improved. - Patient requires 3 L O2 at home, and is currently back to his baseline oxygen demands. - Multifactorial: deconditioning, medication noncompliance,COPD exacerbation, CHF decompensation. - Continue O2 supplement. Treat the underlying cause(s). - Rehabilitation maybe limited by severe COPD and patient's motivation. Will have PT evaluation before discharge. Patient might need to be discharged to a SNF due to inability to care for self at home. 2. Acute on Chronic diastolic heart failure. Present on admission. Active. - secondary to non compliance with medications. - Patient presents with increase dyspnea, fatigue, edema, and cough. - The right ventricular systolic pressure is estimated at 53 mmHg via echo . - Lasix home dose is supposed to be 160mg PO QAM and 80mg QPM. Will start with Lasix 80 mg IV daily and consider increase to BID if tolerates well. - Monitor Potassium and replete as needed. - Will hold Metolazone in the hospital. Will resume at discharge. - Strict I/O and daily standing weight. - Fluid restriction to 1500mls/24 hours. 3. Acute on chronic obstructive pulmonary disease exacerbation, present on admission. Active. - continuing systemic steroids: Prednisone 40 mg daily (day 2 of 5), received Solu-Medrol 125 mg IV in the ED. - Azithromycin 500 mg daily for 5 days. - Recent PFT on 06/14 showed severe airflow obstruction and severely reduced diffusing capacity with air trapping. - bronchodilator therapy with DuoNeb scheduled every 4 hours - continue Brovana, Singulair and Budesonide - continue oxygen supplementation with target 88-92 % 4. Chronic Atrial fibrillation, currently rate controlled. Present on admission. Active. - not currently on anticoagulations or rate control medications. - Chads score of 3. However, he is a high fall risk and medication noncompliance. - Antithrombotics with aspirin 81mg daily. - Monitor Tele 5. Elevated troponin of uncertain significance, present on admission, improving. - Asymptomatic, no ST changes on EKG - Troponin was 0.023 on admission, likely demand ischemia. He has decreased on hospital day 2 - Will continue to trend Trop and monitor Tele. 6. Acute kidney injury, present on admission, active. - BUN 45 and Cr 1.55, which are elevated from baseline (Cr around 1.0). - Avoid nephrotoxic drug and will hold Lisinopril. - Continue to monitor. 7. Hypertension. Chronic. Stable. - Hold Lisinopril due to DORIAN. - Continue to monitor 8. Depression. Chronic. Presume stable. - continuing Paroxetine 20 mg daily, Bupropion 150mg daily, and Alprazolam 0.5mg BID. 9. Diffuse intertrigo. Chronic. Active. - Nystatin while in patient. - Patient had dry skin and severe fungal nail. He reported to unable to care for self. - Component of self neglect, patient is not interested in fpc facility or long-term care facility, however is amiable to home health for in- house care. 10. Obstructive sleep apnea, present on admission, active - On home CPAP - Pulse oximetry on, continuous O2 at night. CODE STATUS: FULL CODE per the patient. Might consider palliative care consult for goals of care. - Acetaminophen as needed for mild pain/fever/headache - Bowel regimen as needed - Antiemetic as needed Patient admitted under inpatient status with expected length of stay > 2 midnights for severity of present symptoms, complexities of treatment plan and risk for adverse event Pain Evaluation: Adequate Pain Control GI Prophylaxis: H2 holger VTE Prophylaxis: Sub-Q Heparin (Unfractionated) Resuscitation Status: CPR: Attempt Resuscitation Time spent 35min Attending Statement The patient was seen and examined together with Dr. Buckner on 06/25/16 and I have added additional information to the note above. Jarred Buckner DO Jun 25, 2016 19:47 Angie Lorenzo DO Jun 26, 2016 07:50
[2016-06-25] MEDS: PARoxetine 20 mg Tablet PO SCH (20:15)
[2016-06-26] VITALS (12 sets, daily range): BP systolic 122–155; BP diastolic 60–71; PULSE 58–82; RESP 18–24; O2SAT 94–99
--- NOTE | 2016-06-26 00:09 | NUR ---
NASAL CONGESTION/COUGH/FLUID RESTRICTION Pt c/o nasal congestion, decongestant spray was ordered. Pt also c/o cough, Cepacol lozenges given. Pt constantly complaining about his fluid restrictions and asks and tries to sweet talk staff into giving extra fluids. Pt educated on why he has fluid restrictions. Pt continues to request more fluids. Pt on 3L NC, sating mid 90's, pt hypertensive, no other issues noted.
[2016-06-26] MEDS: Heparin 5,000 Unit/mL Inj SUBQ SCH ×3 (00:28→17:05)
[2016-06-26] MEDS: Sodium Chloride LOK Flush 10 mL Syringe IVFLUSH SCH ×3 (00:29→17:05)
[2016-06-26] MEDS: Sodium Chloride NAS 45 mL Spray NASAL PRN ×2 (00:29→17:05)
[2016-06-26] MEDS: Albuterol-Ipratropium 3 mL Inhalation Solution NEB SCH ×6 (01:18→21:11)
[2016-06-26 03:25] LABS: Mean Corpuscular Hemoglobin 27.7 pg (27.0-35.0); Mean Corpuscular Volume 92.9 fL (81-100)
[2016-06-26 03:59] LABS: TROPONIN T 0.013 ug/L (0.0-0.011)
[2016-06-26] MEDS ORDERED: predniSONE 10 mg Tablet PO SCH (08:00)
[2016-06-26] MEDS: ALPRAZolam 0.5 mg Tablet PO SCH ×2 (08:09→19:40)
[2016-06-26] MEDS: Benzocaine-Menthol Lozenge 2/Pkg PO PRN ×2 (08:12→15:24)
[2016-06-26] MEDS: Furosemide 10 mg/mL 10 mL Inj IVPUSH SCH (08:20)
--- NOTE | 2016-06-26 10:38 | NUR ---
Sadness Pt worried about his who he stated is not doing well. Is upset he cannot have water to drink. Educated pt on fluid restrictions. Stated he didn't care anymore. Listened and encouraged pt. Care continues.
[2016-06-26] MEDS: Arformoterol 15 mCg/2 mL Inhalation Solution NEB SCH ×2 (10:55→21:13)
[2016-06-26] MEDS: Budesonide 0.5 mg/2 mL Inhalation Solution NEB SCH ×2 (10:55→21:11)
[2016-06-26] MEDS: buPROPion XL 150 mg ER24 Tablet PO SCH (15:23)
--- NOTE | 2016-06-26 15:39 | NUR ---
Evaluation completed. Please go to "Notes" then click on "Assessments and Notes" (bottom left corner of screen). Then select appropriate discipline tab on top of screen.
--- NOTE | 2016-06-26 16:55 | NUR ---
Skin care Used barrier wipes, nystatin cream to all creases this shift, juliette & catheter care by this RN as well. Pt states he does his own skin care at home. Care continues.
--- NOTE | 2016-06-26 17:37 | NUR ---
Wound Care Wound evaluation order received. Patient currently without wound issues per say but nail care was provided at bedside today bilaterally for severe onchyomycosis. Patient to follow up with podiatry on discharge.
--- NOTE | 2016-06-26 17:49 | NUR ---
spiritual care: nurse referral conversational visit. pt reflected about his life, family and marriages. Pt shared of grief and coping including keeping emotional distance for particular painful episodes. 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 Pt shared his current medical situation was not bothersome except as it affects mobility. Pt devoted to and expressed concern for her. will plan to follow
--- NOTE | 2016-06-26 19:41 | PCM.PNMED ---
Subjective Date of Service Jun 26, 2016 Subjective Patient says he is doing well. Feels better than when he came into the hospital. He states he is very tired. Denies any chest pain, worsening shortness of breath, lightheadedness, dizziness, abdominal pain, constipation or diarrhea. Exam Vital Signs Vital Sign - Last Date Time Temp Pulse Resp B/P Pulse Ox O2 Delivery O2 Flow Rate FiO2 06/26/16 16:36 36.9 82 18 148/70 95 Nasal Cannula 3.00 Intake and Output 06/25/16 06/25/16 06/26/16 Cumulative From/Thru 15:00 23:00 07:00 06/24/16 21:01 - 06/26/16 05:07 Intake Total 840 ml 500 ml 2263 ml Output Total 3200 ml 1100 ml 6975 ml Balance -2360 ml -600 ml -4712 ml Intake Oral 840 ml 500 ml 2166 ml IV Total 97 ml Output Urine Total 3200 ml 1100 ml 6975 ml # Bowel Movements 1 0 1 Exam General: Morbidly obese, chronically ill appearance. Alert, Oriented X3, Cooperative, Conversational dyspnea, Mild respiratory distress Eyes: PERRLA, Scleral Anicteric Mouth: Mouth Normal, Mucous Membranes Moist/[place] Neck: Supple, no Thyromegaly, trachea central. Difficult to assess JVD due to large neck circumference Chest & Lungs: Diffuse coarse rales throughout with moderate/scattered insp/ exp wheezes. Cardiovascular: Irregular irregular rhythm. No Rubs/Gallops. + systolic murmur Pulses: Radial (present and equal), Unable to appreciate Dorsalis Pedis. Abdomen: Obese, Soft, Non-tender, Non-distended, Normoactive bowel tones. Extremities: Severe lymphedema in bilateral legs from the knees down with white verrucous hyperplasia and discoloration. Severe pedal pitting edema with fungal nails. Neurological: Appears to have increased somnolence today, Grossly neurologically intact, has generalized weakness, Normal Speech, Sensation Intact Lymphatic: Lymph nodes Cervical and Axillary not palpable IVs and Medications Medications Reviewed: Medications were reviewed in detail Lab and Diagnostics Result Diagram: 06/26/1624406/26/16244 X-Rays, CTs and MRIs PROCEDURE: X-RAY CHEST ONE VIEW, PORTABLE IMPRESSION: Increased pulmonary vascularity with coarsened bibasilar opacities. The latter could be customer development representative of edema vs developing air space disease. Dictated by: Juliane Mcclure M.D. on 06/24/2016 at 21:40 Approved by: Juliane Mcclure M.D. on 06/24/2016 at 21:42 12-lead ECG Atrial fibrillation rate 88. 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 No acute ST changes. Cardiac Echo Impressions Most Recent Echo Interpretation Summary by Dr. Vladimir Wilks on 04/23/16: The left ventricle is normal in size. The left ventricular ejection fraction is normal. The ejection fraction is estimated to be 65-70%. There has been no significant change since the previous study. There are no focal wall motion abnormalities. The right ventricle is mildly dilated. Right ventricular systolic function is mild to moderately reduced. Right ventricular systolic function has decreased since previous exam. The right ventricular systolic pressure is estimated at 53 mmHg assuming a right atrial pressure of 15 mm Hg. RVSP has increased. Consider pulmonary embolism given the increased RVSP and decreased RV systolic function. The dimensions of the ascending aorta are normal. Assessment & Plan 81 yo morbidly obese man with complex history of O2-dependent COPD with chronic respiratory failure, diastolic CHF, chronic lymphedema, chronic Afib, NGOZI, and depression and hypertension brought to the ED by EMS for progressively worsening shortness of breath in the last week. Hospital day 3 1. Acute on chronic hypoxemic respiratory failure. Present on admission. Improved. - Patient requires 3 L O2 at home, and is currently back to his baseline oxygen demands. - Multifactorial: deconditioning, medication noncompliance,COPD exacerbation, CHF decompensation. - Continue O2 supplement. Treat the underlying cause(s). - Rehabilitation maybe limited by severe COPD and patient's lack of motivation. - Physical therapy evaluation showed desaturations into the 80s with ambulation while on oxygen, and required several minutes of recovery. 2. Acute on Chronic diastolic heart failure. Present on admission. Active. - secondary to non compliance with medications. - Patient presents with increase dyspnea, fatigue, edema, and cough. - The right ventricular systolic pressure is estimated at 53 mmHg via echo . - Lasix home dose is supposed to be 160mg PO QAM and 80mg QPM. - Receiving 80 mg IV every morning, has had good response and has been diuresing appropriately. One more round of IV furosemide tomorrow morning with transition back to oral furosemide - Monitor Potassium and replete as needed. - Will hold Metolazone in the hospital. Will resume at discharge. - Strict I/O and daily standing weight. - Fluid restriction to 1500mls/24 hours. 3. Acute on chronic obstructive pulmonary disease exacerbation, present on admission. Active. - continuing systemic steroids: Prednisone 40 mg daily (day 3 of 5), received Solu-Medrol 125 mg IV in the ED. - Azithromycin 500 mg daily for 5 days. (day 2) - Recent PFT on 06/14 showed severe airflow obstruction and severely reduced diffusing capacity with air trapping. - bronchodilator therapy with DuoNeb scheduled every 4 hours - continue Brovana, Singulair and Budesonide - continue oxygen supplementation with target 88-92 % 4. Chronic Atrial fibrillation, currently rate controlled. Present on admission. Active. - not currently on anticoagulations or rate control medications. - Chads score of 3. However, he is a high fall risk and medication noncompliance. - Antithrombotics with aspirin 81mg daily. - Monitor Tele - stable 5. Elevated troponin of uncertain significance, present on admission, improving. - Asymptomatic, no ST changes on EKG - Troponin was 0.023 on admission, likely demand ischemia. He has decreased on hospital day 2. Remains stable today. - Will continue to trend Trop and monitor Tele. 6. Acute kidney injury, present on admission, active. - BUN 45 and Cr 1.55, which are elevated from baseline (Cr around 1.0). - Avoid nephrotoxic drug and will hold Lisinopril. - Continue to monitor. 7. Hypertension. Chronic. Stable. - Hold Lisinopril due to DORIAN. - Continue to monitor 8. Depression. Chronic. Presume stable. - continuing Paroxetine 20 mg daily, Bupropion 150mg daily, and Alprazolam 0.5mg BID. 9. Diffuse intertrigo. Chronic. Active. - Nystatin while in patient. - Patient had dry skin and severe fungal nail. He reported to unable to care for self. - Component of self neglect, patient is not interested in long-term facility or long-term care facility, however is amiable to home health for in- house care. 10. Chronic Obstructive sleep apnea, secondary to obesity, present on admission , active - On home CPAP - Pulse oximetry on, continuous O2 at night. 11. Onychomycosis, chronic, present on admission Requests podiatry consult for evaluation of toenail care. CODE STATUS: FULL CODE per the patient. Might consider palliative care consult for goals of care. - Acetaminophen as needed for mild pain/fever/headache - Bowel regimen as needed - Antiemetic as needed Disposition: Anticipate 1-2 more nights inpatient status for continued diuresis and stabilization and control CHF and hypoxemic respiratory failure. Social work working with patient for home health assistance. Pain Evaluation: Adequate Pain Control GI Prophylaxis: H2 holger VTE Prophylaxis: Sub-Q Heparin (Unfractionated) Resuscitation Status: CPR: Attempt Resuscitation Time spent 30 minutes Attending Statement The patient was seen and examined together with Dr. Buckner on 06/27/16 and I have added additional information to the note above. Jarred Buckner DO Jun 26, 2016 19:41 Angie Lorenzo DO Jun 27, 2016 13:17
[2016-06-26] MEDS: PARoxetine 20 mg Tablet PO SCH (20:53)
[2016-06-27] VITALS (13 sets, daily range): BP systolic 140–161; BP diastolic 66–78; PULSE 58–104; RESP 16–22; O2SAT 93–99
[2016-06-27] MEDS: Albuterol-Ipratropium 3 mL Inhalation Solution NEB SCH ×6 (00:30→21:19)
[2016-06-27] MEDS: Sodium Chloride LOK Flush 10 mL Syringe IVFLUSH SCH ×3 (01:07→17:20)
[2016-06-27] MEDS: Heparin 5,000 Unit/mL Inj SUBQ SCH ×3 (01:07→17:19)
[2016-06-27] MEDS: Benzocaine-Menthol Lozenge 2/Pkg PO PRN ×4 (01:19→22:18)
[2016-06-27 03:19] LABS: BASOPHILS % (AUTO) 0.2 % (0-3); EOSINOPHILS % (AUTO) 0.5 % (0-5); MONOCYTES % (AUTO) 10.5 % (4-12); Mean Corpuscular Hemoglobin 28.2 pg (27.0-35.0); Mean Corpuscular Volume 93.8 fL (81-100); Platelet Count 143 bil/L (150-400)
[2016-06-27 03:32] LABS: TROPONIN T 0.028 ug/L (0.0-0.011)
--- NOTE | 2016-06-27 06:17 | NUR ---
COUGH Pt's cough increased throughout the night. Cepacol lozenges given. O2 titrated down to 2L. Vitals stable, pt independent in bed, SBA to BSC. Uneventful night, no pain or other issues noted.
[2016-06-27] MEDS: Furosemide 10 mg/mL 10 mL Inj IVPUSH SCH (08:08)
[2016-06-27] MEDS: Budesonide 0.5 mg/2 mL Inhalation Solution NEB SCH ×2 (08:23→21:19)
--- NOTE | 2016-06-27 09:18 | NUR ---
Fluid Restriction Pt upset about the fluid restriction in place. Stated he did not care about hearing why it has been implemented. Stated he wants to drink when he wants to drink. Pt was appropriate during conversation. Stated he just didn't care anymore. Listened and encouraged pt. notified. Care continues.
--- NOTE | 2016-06-27 09:33 | NUR ---
Evaluation completed. Please go to "Notes" then click on "Assessments and Notes" (bottom left corner of screen). Then select appropriate discipline tab on top of screen.
--- NOTE | 2016-06-27 10:12 | PCM.CONPAL ---
Date of Service Jun 27, 2016 Date of Hospital Admission: Jun 24, 2016 at 23:02 Date of Palliative Consult: Jun 27, 2016 Requesting Provider: Gautam Pittman MD Comment: PCP is Dr. Rk Valiente. Reason Palliative Care Consult: Goals of Care Discussion Reason for Consultation Palliative Care received verbal order from Dr Waterman 06/27/16 to assist with goals of care. Patient is a 81 year old man with COPD, CHF, respiratory failure. He was admitted 06/24/16. Pt is full code. Pt's also in hospital at this time. Palliative Care has seen pt's , Sarah, many times in the past. Patient resides at home with . Pito Mcintyre (daughter) cell [phone], Hospital Unit @time of consult: Progressive Care (room 2003) Palliative Care Recommendation Summary of palliative recommendations: -Symptom management (Pain/other): End-stage COPD: from review of clinic notes, he saw Dr. Rainey 10/2015 and had PFTs with FEV1 = 1.06 (35% of predicted) with no improvement after bronchodilators, HIs DLCO was 24% and she prescribed him prednisone 10mg po daily. (It appears that he has not refilled this medication after being on it x 3 months.) Recommend: restart 10mg po prednisone daily and follow-up visit with our Pulmonary Clinic as outpatient. Diastolic HF: Mar 2016 has EF 65-70% with diastolic dysfunction. He does have dyspnea, orthopnea, limited mobility due to lower extremity edema. -DPOA/Advanced Directives/POLST 1. Code: on EMR is FULL CODE 2. HCPOA: his stepdaughter Pito Mcintyre 3. No prior POLST paperwork. -Family/emotional support: Pt says he has been twice and he has children from first (now ) but is estranged and doesn't know their location. He has no children with his second , Sarah. Pito Mcintyre (is his Sarah's daughter) cell [phone], . He says Pito is very nice and helpful, but mainly for Sarah's needs. He tries not to involve her in his needs, he feels she is overwhelmed as she is in poor health too. However, when Dr. Pennington called Mrs. Mcintyre, she said she is his HCPOA and POA and the paperwork was done a while back. She says he doesn't have a POLST yet, and she agrees that it would probably be a good idea if he changed his code to DNR/DNI considering his comorbidities. We agreed to meet in his room with him on Wednesday 06/28 at 11a.m. Hospice eligibility: if patient was willing to have hospice care in his home, he would be eligible on basis of his end-stage COPD, with comorbidity of Class III CHF. I recommend that hospice staff review his past records, as I have. I believe he would be eligible on basis of End-stage COPD as he is oxygen and steroid dependent; he was started prednisone 10mg po daily in October 2015, but has failed to comply (likely leading to hospitalizations). Other supporting factors for ES COPD: 1. He has had 2 hospitalizations in 2017 (March and now in May) for COPD acute exacerbations. 2. Maintains 90% sats on 3-4 L (in hospital). Likely would be at sat 88% or less if not on oxygen. For example, physical therapy evaluation showed desaturations into the 80s with ambulation while on oxygen, and required several minutes of recovery. 3. He has comorbid disease of diastolic heart failure with Class III CHF due to symptoms at rest of conversational dyspnea, orthopnea, and severe lower leg edema. Supporting evidence: 1. 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 2. He has anemia with Hgb 11 (for hospice needs to be <12 for Class III CHF) 3. He has had pleural edema this admission requiring IV diuretics 4. He is maximally managed on his current heart medications AND 5. He is not eligible for any cardiac procedures or surgeries. -Spiritual support: no addressed. Normal Mentation but has Poor Insight into disease process: He does not believe that he really needs fluid restriction, he says he has lost 2 lbs in the hospital in one day. Dr. Pennington points out that he has been on IV diuretics in hospital that he can't get at home. He doesn't think he really has heart failure because he has never had a heart attack. He blames dyspnea on his 400lbs of weight. Dr. Pennington points out that overweight people can from their excess weight putting more stress on their lungs and heart, he grudgingly acknowledges this, but still not willing to continue with fluid restriction here and says he won't do that at home either. Patient's functional baseline: He lives with his Sarah, who is 5 years older than himself, in a home with both ramp and stair entry. Tub shower with seat, navigable toilet. He usually sleeps in his recliner at night (this started a few months ago). He cannot lie flat due to dyspnea. He has a large bariatric bed with special technology that he purchased, it is in his bedroom, but he mainly falls asleep in hias recliner at night. He feels he is managing all needs sufficiently well. He describes how he manages grocery shopping ( electric cart at store and he pulls groceries from truck to house with a Radio Flyer wagon). He is adamant that he does not have functional deficits beyond his COPD-related limits. He seems to have a good routine at home. Currently: ambulates without assistance but only walks from chair to the bathroom in hospital so far. 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 He has told his RN that "the love of my life is dying," and he doesn't want to live any more. He has also complained about fluid restrictions (for his CHF) and he doesn 't want to comply with these either. Patient Goals: pending further discussion with pt and HCPOA on 06/28/16. Additional Medical Diagnoses with primary management by Hospitalist team include : 1. Acute on chronic hypoxemic respiratory failure. Present on admission. Improved. - Patient requires 3 L O2 at home, and is currently back to his baseline oxygen demands. - Multifactorial: deconditioning, medication noncompliance,COPD exacerbation, CHF decompensation. - Continue O2 supplement. Treat the underlying cause(s). - Rehabilitation maybe limited by severe COPD and patient's lack of motivation. - Physical therapy evaluation showed desaturations into the 80s with ambulation while on oxygen, and required several minutes of recovery. 2. Acute on Chronic diastolic heart failure. Present on admission. Active. - secondary to non compliance with medications. - Patient presents with increase dyspnea, fatigue, edema, and cough. - The right ventricular systolic pressure is estimated at 53 mmHg via echo . - Lasix home dose is supposed to be 160mg PO QAM and 80mg QPM. - Receiving 80 mg IV every morning, has had good response and has been diuresing appropriately. One more round of IV furosemide tomorrow morning with transition back to oral furosemide - Monitor Potassium and replete as needed. - Will hold Metolazone in the hospital. Will resume at discharge. - Strict I/O and daily standing weight. - Fluid restriction to 1500mls/24 hours. 3. Acute on chronic obstructive pulmonary disease exacerbation, present on admission. Active. - continuing systemic steroids: Prednisone 40 mg daily (day 3 of 5), received Solu-Medrol 125 mg IV in the ED. - Azithromycin 500 mg daily for 5 days. (day 2) - Recent PFT on 06/14 showed severe airflow obstruction and severely reduced diffusing capacity with air trapping. - bronchodilator therapy with DuoNeb scheduled every 4 hours - continue Brovana, Singulair and Budesonide - continue oxygen supplementation with target 88-92 % 4. Chronic Atrial fibrillation, currently rate controlled. Present on admission. Active. - not currently on anticoagulations or rate control medications. - Chads score of 3. However, he is a high fall risk and medication noncompliance. - Antithrombotics with aspirin 81mg daily. - Monitor Tele - stable 5. Elevated troponin of uncertain significance, present on admission, improving. - Asymptomatic, no ST changes on EKG - Troponin was 0.023 on admission, likely demand ischemia. This has decreased on hospital day 2. Remains stable today. - Will continue to trend Trop and monitor Tele. 6. Acute kidney injury, present on admission, active. - BUN 45 and Cr 1.55, which are elevated from baseline (Cr around 1.0). - Avoid nephrotoxic drug and will hold Lisinopril. - Continue to monitor. 7. Hypertension. Chronic. Stable. - Hold Lisinopril due to DORIAN. - Continue to monitor 8. Depression. Chronic. Presume stable. - continuing Paroxetine 20 mg daily, Bupropion 150mg daily, and Alprazolam 0.5mg BID. 9. Diffuse intertrigo. Chronic. Active. - Nystatin while in patient. - Patient had dry skin and severe fungal nail. He reported to unable to care for self. - Component of self neglect, patient is not interested in halfway facility or long-term care facility, however is amiable to home health for in- house care. 10. Chronic Obstructive sleep apnea, secondary to obesity, present on admission , active - On home CPAP - Pulse oximetry on, continuous O2 at night. 11. Onychomycosis, chronic, present on admission Requests podiatry consult for evaluation of toenail care. Problems: Resuscitation Status Resuscitation Status: CPR: Attempt Resuscitation POLST Updates/Changes Previous POLST?: No POLST Discussed with: Health Care Agent ([facility]) (subject approached with stepdaughter today) . Advanced Care Planning Address: POLST Symptom management: Dyspnea Pt History History of Present Illness Mr. Sarath Weiss is a 81 yo morbidly obese man with complex history of O2- dependent COPD with chronic respiratory failure, diastolic CHF, chronic lymphedema, chronic Afib, NGOZI, and depression and hypertension brought to the ED by EMS for progressively worsening shortness of breath in the last week. Patient admits to severe dyspnea, productive cough, and increased leg edema that he had to call the medics last night. He was seen at his home by medics and was administered breathing treatments that provided some relief of symptoms. Patient states "I should have come but I talked myself out of it." However, his symptoms progressively returned and worsened overnight, which is the cause for his ER visit today. Admitted 06/24. Patient reports worsening of the chronic cough and has some thick white sputum production. He denies any chest pain, palpitations, fever, chills, and diaphoresis. He is on home oxygen typically at 2 L but has required 3 L in the last few days. The inhalers does not give him any relief. He is having a hard time taking care of himself since his has been sicker than him, and thus he has been very depressed and stressed. He reports to sleep while sitting up and has about 3 hours of sleep per night. Patient is pretty much bed bound and is only able to ambulate to the bathroom. Patient admits that he has been so fatigue the last couple days that he has not taken any of his medications for 2 days. He states that he does not know what medications to take because every time he is in the hospital, his medications got changed and he cannot see his PCP for months. Hospital Course: Patient has been to the hospital multiple times for similar symptoms. Past Medical History Significant PMH Noted: 1. COPD (on 2 L of oxygen and daily prednisone at home). 2. Diastolic congestive heart failure. 3. Pulmonary hypertension. 4. Obstructive sleep apnea (not on CPAP). 5. Hypertension. 6. Atrial fibrillation (not on Coumadin due apparently to a prior history of nose bleed). 7. Morbid obesity. 8. Depression. 9. Anxiety. 10. Insomnia. 11. Chronic lower extremity edema. 12. History of prostate cancer status post prostatectomy. 13. Gout. 14. Recent hospitalization in late December or early January of 2015 and treated for Moraxella catarrhalis pneumonia. 15. Hypoxemic hypercapnic respiratory failure in the past with recent admission in March 2016. Surgical History Appendectomy Cholecystectomy Right knee replacement Radical prostatectomy Family History Patient denies any family history of heart disease Mother had Bladder Cancer Brother had Brain Cancer Social History Hx Alcohol Use: Yes (admits to drinking 1 beer/night to help him sleep) Hx Substance Use: No Hx Tobacco Use: Yes (quit 27 years ago) Smoking Status: Former Smoker Additional Information Lives with at home. Medications Current Medications: Current Medications Montelukast Sodium 10 mg HS PO Last administered on 06/26/16 20:53; Admin Dose 10 MG; Start 06/25/16 at 21:00 Paroxetine HCl 20 mg HS PO Last administered on 06/26/16 20:53; Admin Dose 20 MG; Start 06/25/16 at 21:00 Prednisone 40 mg DAILYWM PO Last administered on 06/26/16 08:09; Admin Dose 40 MG; Start 06/26/16 at 08:00; Stop 06/26/16 at 16:17; Status DC Azithromycin 500 mg HS PO Last administered on 06/26/16 20:53; Admin Dose 500 MG; Start 06/25/16 at 21:20 Sodium Chloride 2 spray PRN PRN NASAL Last administered on 06/26/16 17:05; Admin Dose 2 SPRAY; Start 06/25/16 at 23:45 Prednisone 40 mg DAILYWM PO; Start 06/27/16 at 08:00 Scheduled Alprazolam (Alprazolam) 0.5 Mg Tablet 0.5 MG PO BID Arformoterol Tartrate (Brovana) 15 Mcg/2 Ml Nebu 15 MCG NEB BID Aspirin Chew (Aspirin Chew) 81 Mg Chew 81 MG PO DAILY Budesonide (Pulmicort) 1 Mg/2 Ml Ampul.neb 1 MG IH BID Bupropion ER (Bupropion ER) 150 Mg Tablet.er 150 MG PO QAM Cyanocobalamin (Vitamin B-12) (Vitamin B-12) 1,000 Mcg Tab.subl 1,000 MCG SL DAILY Ferrous Sulfate (Ferrous Sulfate) 325 Mg Tablet 325 MG PO BIDWM Furosemide (Furosemide) 80 Mg Tab 160 MG PO QAM TAKES 160 MG IN AM AND 80 MG IN AFTERNOON Furosemide (Lasix) 80 Mg Tablet 80 MG PO QPM TAKES 160 MG IN AM AND 80 MG IN AFTERNOON Lisinopril (Lisinopril) 10 Mg Tablet 10 MG PO BID Montelukast (Montelukast) 10 Mg Tablet 10 MG PO HS Paroxetine (Paroxetine) 20 Mg Tablet 20 MG PO HS Potassium Chloride ER (Klor-Con 10) 10 Meq Tablet.er 10 MEQ PO BIDWM Prednisone (PredniSONE) 10 Mg Tablet 10 MG PO QAM Scheduled PRN Albuterol Sulfate (Ventolin HFA Inhaler) 200 Puff/18 Gm Inhaler 1-2 PUFFS INHALATION QID PRN PRN For Shortness of Breath Ipratropium/Albuterol Sulfate (Iprat-Albut 0.5-3(2.5) mg/3 mL Inhalant Soln) 3 Ml Ampul.neb 3 ML IH Q6 PRN PRN For Wheezing Metolazone (Metolazone) 2.5 Mg Tablet 2.5 MG PO 1-2 xWEEK PRN PRN LE EDEMA Nystatin (Nystop) 60 Gm Powder 1 APPLIC TOPICAL BID PRN PRN rash Polyethylene Glycol 3350 (Miralax) 17 Gm Powd.pack 17 GM PO DAILY PRN PRN For Constipation Sennosides (Senna) 8.6 Mg Tablet 8.6 MG PO DAILY PRN PRN For Constipation Tramadol (Tramadol) 50 Mg Tablet 50 MG PO QID PRN PRN For Pain Trazodone (Trazodone) 50 Mg Tablet 25 MG PO HS PRN PRN insom Objective Findings Exam Vital Sign - Last Date Time Temp Pulse Resp B/P Pulse Ox O2 Delivery O2 Flow Rate FiO2 06/27/16 08:24 58 20 96 Nasal Cannula 3.00 06/27/16 08:02 36.6 161/73 Intake and Output 06/26/16 06/26/16 06/27/16 Cumulative From/Thru 15:00 23:00 07:00 06/24/16 21:01 - 06/27/16 05:01 Intake Total 1260 ml 200 ml 3723 ml Output Total 2050 ml 700 ml 9725 ml Balance -790 ml -500 ml -6002 ml Intake Oral 1260 ml 200 ml 3626 ml IV Total 97 ml Output Urine Total 2050 ml 700 ml 9725 ml # Bowel Movements 0 1 Objective General: Morbidly obese, chronically ill appearance. Alert, Cooperative, Conversational dyspnea, Mild respiratory distress Eyes: PERRLA, Scleral Anicteric Mouth: Mouth Normal, Mucous Membranes Moist/[place] Neck: Supple, no Thyromegaly, trachea central. Difficult to assess JVD due to large neck circumference Chest & Lungs: Diffuse coarse rales throughout with moderate/scattered insp/ exp wheezes. Cardiovascular: Irregular irregular rhythm. No Rubs/Gallops. + systolic murmur Pulses: B/L radial pulses equal, unable to palpate DPs. Abdomen: Obese, Soft, Non-tender, Non-distended, Normoactive bowel tones. Extremities: Severe lymphedema in bilateral legs from the knees down with white verrucous hyperplasia and discoloration. Severe pedal pitting edema with fungal nails. Neurological: Oriented X3, grossly neurologically intact, has generalized weakness, Normal Speech, Sensation Intact Lab/Diagnostics Lab and Diagnostics 06/27/16 0234 12-lead ECG Atrial fibrillation rate 88. 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 No acute ST changes. Cardiac Echo Impressions Most Recent Echo Interpretation Summary by Dr. Vladimir Wilks on 04/23/16: The left ventricle is normal in size. The left ventricular ejection fraction is normal. The ejection fraction is estimated to be 65-70%. There has been no significant change since the previous study. There are no focal wall motion abnormalities. The right ventricle is mildly dilated. Right ventricular systolic function is mild to moderately reduced. Right ventricular systolic function has decreased since previous exam. The right ventricular systolic pressure is estimated at 53 mmHg assuming a right atrial pressure of 15 mm Hg. RVSP has increased. Consider pulmonary embolism given the increased RVSP and decreased RV systolic function. The dimensions of the ascending aorta are normal. Time spent Total time 70 minutes; >50% face to face with patient and/or family, providing counselling regarding plans and recommendations, and in care coordination with his/her medical teams. I also spent an additional 30 minutes counseling for advanced care planning with the patient/the patients family/the surrogate decision maker. copies to: Rk Valiente MD [facility] DrumrightBrooke solomon MD Jun 27, 2016 10:12
--- NOTE | 2016-06-27 11:14 | NUR ---
Palliative Care Palliative Care received verbal order from Dr Waterman 06/27/16 to assist with goals of care. Patient is a 81 year old man with COPD, CHF, respiratory failure. He was admitted 06/24/16. Pt is full code. Pt's also in hospital at this time. Palliative Care has seen pt's , Sarah, many times in the past. Patient resides at home with . Pito Mcintyre (daughter) cell [phone], Palliative Care to follow. Yvrose Rowell
[2016-06-27] MEDS: ALPRAZolam 0.5 mg Tablet PO SCH ×2 (11:31→20:30)
[2016-06-27] MEDS: predniSONE 20 mg Tablet PO SCH (11:34)
[2016-06-27] MEDS: buPROPion XL 150 mg ER24 Tablet PO SCH (12:00)
--- NOTE | 2016-06-27 12:07 | DRSVH ---
PROCEDURE: X-RAY CHEST ONE VIEW, PORTABLE ([id number]) INDICATIONS: pulm edema TECHNIQUE: One view of the chest was acquired. COMPARISON: [facility], CR, XR CHEST 1VW (PORTABLE), 06/24/2016, 20:49. FINDINGS: Surgical changes and devices: None. Lungs and pleura: No pleural effusions or pneumothorax. Increased pulmonary vascularity. Coarsened mid and bibasilar opacities unchanged. Mediastinum: Mediastinal contours appear normal. Heart size is normal. Bones and chest wall: No suspicious bony lesions. Overlying soft tissues appear unremarkable. IMPRESSION: Mild edema not significantly changed. Dictated by: Genaro Zavaleta RRLashonda Interpreted: Bety Spann MD on 06/27/2016 at 12:06 Transcribed by: NANI on 06/27/2016 at 12:07 Approved by: Bety Spann MD, PhD on 06/27/2016 at 16:32
[2016-06-27] MEDS: Arformoterol 15 mCg/2 mL Inhalation Solution NEB SCH ×2 (14:01→21:19)
--- NOTE | 2016-06-27 14:20 | PCM.PNMED ---
Subjective Date of Service Jun 27, 2016 Subjective Remains tired and somnolent this morning, says that he is always tired during the day even at home. Claims to still have cough, and expresses mild frustration that we have not solved his cough. He has had good response to IV furosemide, good urine output overnight. He denies any chest pain, worsening shortness of breath, lightheadedness, dizziness, abdominal pain. When asked if he was having any discomfort from his Vaughan catheter, he did not realize he had one urine despite not getting out of bed for 3 days to urinate. He expresses frustration with being in the hospital, and repeats several times that he wishes he could be discharged home so he can be with his ill . Exam Vital Signs Vital Sign - Last Date Time Temp Pulse Resp B/P Pulse Ox O2 Delivery O2 Flow Rate FiO2 06/27/16 13:40 76 22 93 Nasal Cannula 3.00 06/27/16 11:51 36.6 144/73 Intake and Output 06/26/16 06/26/16 06/27/16 Cumulative From/Thru 15:00 23:00 07:00 06/24/16 21:01 - 06/27/16 05:01 Intake Total 1260 ml 200 ml 3723 ml Output Total 2050 ml 700 ml 9725 ml Balance -790 ml -500 ml -6002 ml Intake Oral 1260 ml 200 ml 3626 ml IV Total 97 ml Output Urine Total 2050 ml 700 ml 9725 ml # Bowel Movements 0 1 Exam General: Morbidly obese, chronically ill appearance. Alert, Oriented X3, Cooperative, Conversational dyspnea, Mild respiratory distress Eyes: PERRLA, Scleral Anicteric Mouth: Mouth Normal, Mucous Membranes Moist/[place] Neck: Supple, no Thyromegaly, trachea central. Difficult to assess JVD due to large neck circumference Chest & Lungs: Moderately improved breath sounds since yesterday, only mild wheezing at the end of expiration, greater on left than right. Cardiovascular: Irregular irregular rhythm. No Rubs/Gallops. + systolic murmur Pulses: Radial (present and equal), Unable to appreciate Dorsalis Pedis. Abdomen: Obese, Soft, Non-tender, Non-distended, Normoactive bowel tones. Extremities: Severe lymphedema in bilateral legs from the knees down with white verrucous hyperplasia and discoloration. Severe pedal pitting edema with fungal nails. Neurological: Appears to have increased somnolence today, Grossly neurologically intact, has generalized weakness, Normal Speech, Sensation Intact Lymphatic: Lymph nodes Cervical and Axillary not palpable IVs and Medications Medications Reviewed: Medications were reviewed in detail Lab and Diagnostics Result Diagram: 06/27/16 0234 06/27/16 0234 X-Rays, CTs and MRIs Portable chest x-ray performed 06/27/2016 - personally reviewed IMPRESSION: Mild edema not significantly changed. Dictated by: Genaro WAN Interpreted: Bety Spann MD on 06/27/2016 at 12:06 PROCEDURE: X-RAY CHEST ONE VIEW, PORTABLE IMPRESSION: Increased pulmonary vascularity with coarsened bibasilar opacities. The latter could be site safety representative of edema vs developing air space disease. Dictated by: Juliane Mcclure M.D. on 06/24/2016 at 21:40 Approved by: Juliane Mcclure M.D. on 06/24/2016 at 21:42 12-lead ECG Atrial fibrillation rate 88. 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 No acute ST changes. Cardiac Echo Impressions Most Recent Echo Interpretation Summary by Dr. Vladimir Wilks on 04/23/16: The left ventricle is normal in size. The left ventricular ejection fraction is normal. The ejection fraction is estimated to be 65-70%. There has been no significant change since the previous study. There are no focal wall motion abnormalities. The right ventricle is mildly dilated. Right ventricular systolic function is mild to moderately reduced. Right ventricular systolic function has decreased since previous exam. The right ventricular systolic pressure is estimated at 53 mmHg assuming a right atrial pressure of 15 mm Hg. RVSP has increased. Consider pulmonary embolism given the increased RVSP and decreased RV systolic function. The dimensions of the ascending aorta are normal. Assessment & Plan 81 yo morbidly obese man with complex history of O2-dependent COPD with chronic respiratory failure, diastolic CHF, chronic lymphedema, chronic Afib, NGOZI, and depression and hypertension brought to the ED by EMS for progressively worsening shortness of breath in the last week. Hospital day 4 1. Acute on chronic hypoxemic respiratory failure. Present on admission. Improved. - Patient requires 3 L O2 at home, and is currently back to his baseline oxygen demands. - Multifactorial: deconditioning, medication noncompliance,COPD exacerbation, CHF decompensation. - Continue O2 supplement. Treat the underlying cause(s). - Rehabilitation maybe limited by severe COPD and patient's lack of motivation. - Physical therapy evaluation showed desaturations into the 80s with ambulation while on oxygen, and required several minutes of recovery. - Repeat chest x-ray today showed no appreciable change is pulmonary edema.- Reviewed and compared imaging personally. 2. Acute on Chronic diastolic heart failure. Present on admission. Active. - secondary to non compliance with medications. - Patient presents with increase dyspnea, fatigue, edema, and cough. - The right ventricular systolic pressure is estimated at 53 mmHg via echo . - Lasix home dose is supposed to be 160mg PO QAM and 80mg QPM. - Received 80 mg IV every morning, has had good response and has been diuresing appropriately. - Switched to oral furosemide this afternoon, and resuming his home dose tomorrow morning oral furosemide. - Monitor Potassium and replete as needed. - Will hold Metolazone in the hospital. Will resume at discharge. - Strict I/O and daily standing weight. - Fluid restriction to 1500mls/24 hours. 3. Acute on chronic obstructive pulmonary disease exacerbation, present on admission. Active. - continuing systemic steroids: Prednisone 40 mg daily (day 4 of 5), received Solu-Medrol 125 mg IV in the ED. - Azithromycin 500 mg daily for 5 days. (day 3) - Recent PFT on 06/14 showed severe airflow obstruction and severely reduced diffusing capacity with air trapping. - bronchodilator therapy with DuoNeb scheduled every 4 hours - continue Brovana, Singulair and Budesonide - continue oxygen supplementation with target 88-92 % -Tessalon Perles for cough suppression 4. Chronic Atrial fibrillation, currently rate controlled. Present on admission. Active. - not currently on anticoagulations or rate control medications. - Chads score of 3. However, he is a high fall risk and medication noncompliance. - Antithrombotics with aspirin 81mg daily. - Monitor Tele - stable 5. Elevated troponin of uncertain significance, present on admission, stable. - Asymptomatic, no ST changes on EKG - Troponin was 0.023 on admission, likely demand ischemia. He has decreased on hospital day 2. Remains stable today. - Will continue to trend Trop and monitor Tele. 6. Acute kidney injury, present on admission, improved. - BUN 45 and Cr 1.55, which are elevated from baseline (Cr around 1.0). - Avoid nephrotoxic drug and will hold Lisinopril. - Continue to monitor. 7. Hypertension. Chronic. Stable. - Hold Lisinopril due to DORIAN. - Continue to monitor 8. Depression. Chronic. Presume stable. - continuing, Bupropion 150mg daily, and Alprazolam 0.5mg BID. - Increase Paroxetine 20 mg daily to paroxetine 40 mg daily 9. Diffuse intertrigo. Chronic. Active. - Nystatin while in patient. - Patient had dry skin and severe fungal nail. He reported to unable to care for self. - Component of self neglect, patient is not interested in snf facility or long-term care facility, however is amiable to home health for in- house care. 10. Chronic Obstructive sleep apnea, secondary to obesity, present on admission , active - Declines to wear CPAP, says he does not wear it at home because it is uncomfortable and does not allow him to cough. - Pulse oximetry on, continuous O2 at night. 11. Onychomycosis, chronic, present on admission Has been seen and evaluated by wound care. Maintenance has been performed to his toenails. We greatly appreciate wound cares services on this case. CODE STATUS: FULL CODE per the patient. -Palliative care consult requested. - Acetaminophen as needed for mild pain/fever/headache - Bowel regimen as needed - Antiemetic as needed Disposition: Anticipate 1 or possibly 2 more nights inpatient status for continued diuresis and stabilization and control CHF and hypoxemic respiratory failure. Social work working with patient for home health assistance. Pain Evaluation: Adequate Pain Control GI Prophylaxis: H2 holger VTE Prophylaxis: Sub-Q Heparin (Unfractionated) Resuscitation Status: CPR: Attempt Resuscitation Time spent 35minutes Attending Statement The patient was seen and examined together with Dr. Buckner on 06/27/16 and I have added additional information to the note above. Jarred Buckner DO Jun 27, 2016 14:20 Angie Lorenzo DO Jun 28, 2016 15:33
--- NOTE | 2016-06-27 17:14 | NUR ---
Social Work: Readiness for Discharge D: Pt discussed in am rounds. Pt is not medically stable for discharge but is anticipated to be ready tomorrow. AIRPORT OPERATIONS CREW MEMBER met with pt at bedside to review discharge plan. AIRPORT OPERATIONS CREW MEMBER reviewed PT recommendation for Home with HH. Pt initially resistant to HH however after clarifying HH services pt is agreeable to having an RN come out to assist with his transition home. Pt is not sure he will complete ongoing PT but is willing to have at least one visit to assess his house for safety. His preference is for [facility]. Pt confirms that he will be paying privately for a taxi cab home. t/c to Madi Neely with [facility] to notify of possible d/c on Friday. F2F completed by MD today at am rounds. [facility] will come before discharge to pickup F2F. A: pt who lives with his in [place]. P: Anticipate pt to discharge home with [facility] for RN, PT with PP taxi. AIRPORT OPERATIONS CREW MEMBER to continue to follow. GLENIS Resendez
--- NOTE | 2016-06-27 18:33 | NUR ---
Alexus Vaughan DC'd at approximately 181. Urinal at bedside. Pt stated he was a dribbler, provided dry wash cloths per pt request. Pt resting in chair watching TV. Care continues.
[2016-06-27] MEDS ORDERED: PARoxetine 20 mg Tablet PO SCH (21:00)
[2016-06-28] VITALS (8 sets, daily range): BP systolic 129–167; BP diastolic 70–78; PULSE 61–95; RESP 16–22; O2SAT 92–100
[2016-06-28] MEDS: Albuterol-Ipratropium 3 mL Inhalation Solution NEB SCH ×4 (00:16→12:30)
[2016-06-28] MEDS: Sodium Chloride LOK Flush 10 mL Syringe IVFLUSH SCH ×2 (02:00→10:37)
[2016-06-28] MEDS: Heparin 5,000 Unit/mL Inj SUBQ SCH ×2 (02:00→10:42)
[2016-06-28 03:04] LABS: Mean Corpuscular Hemoglobin 27.8 pg (27.0-35.0); Mean Corpuscular Volume 93.1 fL (81-100)
[2016-06-28 03:46] LABS: Magnesium 2.2 mg/dL (1.6-2.6); TROPONIN T 0.011 ug/L (0.0-0.011)
--- NOTE | 2016-06-28 04:11 | NUR ---
ACTIVITY Pt up out of bed ambulating to BSC with SBA. Pt had uneventful night, vitals stable, slight cough, lozenges given. Pt's alberts was removed on day shift, appropriate urine output >625cc.
[2016-06-28] MEDS: Budesonide 0.5 mg/2 mL Inhalation Solution NEB SCH (05:47)
[2016-06-28] MEDS: Arformoterol 15 mCg/2 mL Inhalation Solution NEB SCH (05:47)
[2016-06-28] MEDS: buPROPion XL 150 mg ER24 Tablet PO SCH (08:30)
--- NOTE | 2016-06-28 10:15 | PCM.PALLBR ---
Palliative Care Recommendation Summary of palliative recommendations: Today, 06/28 is Hospital Day 5: Symptom management (Pain/other): End-stage COPD: from review of clinic notes, he saw Dr. Rainey 10/2015 and had PFTs with FEV1 = 1.06 (35% of predicted) with no improvement after bronchodilators, HIs DLCO was 24% and she prescribed him prednisone 10mg po daily. (It appears that he has not refilled this medication after being on it x 3 months.) Recommend: restart 10mg po prednisone daily and follow-up visit with our Pulmonary Clinic as outpatient. Diastolic HF: Mar 2016 has EF 65-70% with diastolic dysfunction. He does have dyspnea, orthopnea, limited mobility due to lower extremity edema. DPOA/Advanced Directives/POLST: 1. Code: on EMR is FULL CODE-->changed to DNR/DNI on 06/28 per family conference 2. HCPOA: his stepdaughter Pito Mcintyre 3. No prior POLST paperwork-->new POLST signed today 06/28 just prior to discharge home 06/27: Family/emotional support: Pt says he has been twice and he has children from first (now ) but is estranged and doesn't know their location. He has no children with his second , Sarah. Mrs. Pito Mcintyre (is his Sarah's daughter) cell [phone], . He says Pito is very nice and helpful, but mainly for Sarah's needs. He tries not to involve her in his needs, he feels she is overwhelmed as she is in poor health too. However, when Dr. Penningotn called Mrs. Mcintyre, she said she is his HCPOA and POA and the paperwork was done a while back. She says he doesn't have a POLST yet, and she agrees that it would probably be a good idea if he changed his code to DNR/DNI considering his comorbidities. We agreed to meet in his room with him on Wednesday 06/28 at 11a.m. 06/28: Family Meeting with Palliative Care Team: Dr. Pennington, Olive Conn ( with [facility]), Mrs. Pito Mcintyre and pt all met in his room today. 1. Dr. Pennington and Ms. Conn explained the benefits of hospice in his home and recommended considering it. 2. Dr. Pennington explained gradual decline in health expected from his combination COPD and heart disease, asking if pt would prefer to stay at home, if possible, when he gets sick again. Pt would like as many days at home without return to hospital, if possible. 3. We discussed POLST and Code status extensively. 4. Pt decided to change his code to: DNR/DNI and signed a POLST today stating DNR/DNI/determine need for antibiotics/no tube feeding. 5. Copies of POLST given to pt and Mrs. Mcintyre. Original put in chart 6. Pt decided to accept a hospice info visit at home, to be arranged by our inpatient floor CM worker prior to discharge today 7. Pt decisions shared with Attending Dr. Lorenzo and Chief Resident Dr. Waterman. Hospice eligibility: if patient was willing to have hospice care in his home, he would be eligible on basis of his end-stage COPD, with comorbidity of Class III CHF. I recommend that hospice staff review his past records, as I have. I believe he would be eligible on basis of End-stage COPD as he is oxygen and steroid dependent; he was started prednisone 10mg po daily in October 2015, but has failed to comply (likely leading to hospitalizations). Other supporting factors for ES COPD: 1. He has had 2 hospitalizations in 2017 (March and now in May) for COPD acute exacerbations. 2. Maintains 90% sats on 3-4 L (in hospital). Likely would be at sat 88% or less if not on oxygen. For example, physical therapy evaluation showed desaturations into the 80s with ambulation while on oxygen, and required several minutes of recovery. 3. He has comorbid disease of diastolic heart failure with Class III CHF due to symptoms at rest of conversational dyspnea, orthopnea, and severe lower leg edema. Supporting evidence: 1. 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 2. He has anemia with Hgb 11 (for hospice needs to be <12 for Class III CHF) 3. He has had pleural edema this admission requiring IV diuretics 4. He is maximally managed on his current heart medications AND 5. He is not eligible for any cardiac procedures or surgeries. -Spiritual support: no addressed. Normal Mentation but has Poor Insight into disease process: He does not believe that he really needs fluid restriction, he says he has lost 2 lbs in the hospital in one day. Dr. Pennington points out that he has been on IV diuretics in hospital that he can't get at home. He doesn't think he really has heart failure because he has never had a heart attack. He blames dyspnea on his 400lbs of weight. Dr. Pennington points out that overweight people can from their excess weight putting more stress on their lungs and heart, he grudgingly acknowledges this, but still not willing to continue with fluid restriction here and says he won't do that at home either. Patient's functional baseline: He lives with his Sarah, who is 5 years older than himself, in a home with both ramp and stair entry. Tub shower with seat, navigable toilet. He usually sleeps in his recliner at night (this started a few months ago). He cannot lie flat due to dyspnea. He has a large bariatric bed with special technology that he purchased, it is in his bedroom, but he mainly falls asleep in hias recliner at night. He feels he is managing all needs sufficiently well. He describes how he manages grocery shopping ( electric cart at store and he pulls groceries from truck to house with a Radio Flyer wagon). He is adamant that he does not have functional deficits beyond his COPD-related limits. He seems to have a good routine at home. Currently: ambulates without assistance but only walks from chair to the bathroom in hospital so far. 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 He has told his RN that "the love of my life is dying," and he doesn't want to live any more. He has also complained about fluid restrictions (for his CHF) and he doesn 't want to comply with these either. Patient Goals: pending further discussion with pt and HCPOA on 06/28/16. Additional Medical Diagnoses with primary management by Hospitalist team include : 1. Acute on chronic hypoxemic respiratory failure. Present on admission. Improved. - Patient requires 3 L O2 at home, and is currently back to his baseline oxygen demands. - Multifactorial: deconditioning, medication noncompliance,COPD exacerbation, CHF decompensation. - Continue O2 supplement. Treat the underlying cause(s). - Rehabilitation maybe limited by severe COPD and patient's lack of motivation. - Physical therapy evaluation showed desaturations into the 80s with ambulation while on oxygen, and required several minutes of recovery. 2. Acute on Chronic diastolic heart failure. Present on admission. Active. - secondary to non compliance with medications. - Patient presents with increase dyspnea, fatigue, edema, and cough. - The right ventricular systolic pressure is estimated at 53 mmHg via echo . - Lasix home dose is supposed to be 160mg PO QAM and 80mg QPM. - Receiving 80 mg IV every morning, has had good response and has been diuresing appropriately. One more round of IV furosemide tomorrow morning with transition back to oral furosemide - Monitor Potassium and replete as needed. - Will hold Metolazone in the hospital. Will resume at discharge. - Strict I/O and daily standing weight. - Fluid restriction to 1500mls/24 hours. 3. Acute on chronic obstructive pulmonary disease exacerbation, present on admission. Active. - continuing systemic steroids: Prednisone 40 mg daily (day 3 of 5), received Solu-Medrol 125 mg IV in the ED. - Azithromycin 500 mg daily for 5 days. (day 2) - Recent PFT on 06/14 showed severe airflow obstruction and severely reduced diffusing capacity with air trapping. - bronchodilator therapy with DuoNeb scheduled every 4 hours - continue Brovana, Singulair and Budesonide - continue oxygen supplementation with target 88-92 % 4. Chronic Atrial fibrillation, currently rate controlled. Present on admission. Active. - not currently on anticoagulations or rate control medications. - Chads score of 3. However, he is a high fall risk and medication noncompliance. - Antithrombotics with aspirin 81mg daily. - Monitor Tele - stable 5. Elevated troponin of uncertain significance, present on admission, improving. - Asymptomatic, no ST changes on EKG - Troponin was 0.023 on admission, likely demand ischemia. This has decreased on hospital day 2. Remains stable today. - Will continue to trend Trop and monitor Tele. 6. Acute kidney injury, present on admission, active. - BUN 45 and Cr 1.55, which are elevated from baseline (Cr around 1.0). - Avoid nephrotoxic drug and will hold Lisinopril. - Continue to monitor. 7. Hypertension. Chronic. Stable. - Hold Lisinopril due to DORIAN. - Continue to monitor 8. Depression. Chronic. Presume stable. - continuing Paroxetine 20 mg daily, Bupropion 150mg daily, and Alprazolam 0.5mg BID. 9. Diffuse intertrigo. Chronic. Active. - Nystatin while in patient. - Patient had dry skin and severe fungal nail. He reported to unable to care for self. - Component of self neglect, patient is not interested in usp facility or long-term care facility, however is amiable to home health for in- house care. 10. Chronic Obstructive sleep apnea, secondary to obesity, present on admission , active - On home CPAP - Pulse oximetry on, continuous O2 at night. 11. Onychomycosis, chronic, present on admission Requests podiatry consult for evaluation of toenail care. Problems: Resuscitation Status Resuscitation Status: DNR/DNI:Do Not Resuscitate/Intubate POLST Updates/Changes Previous POLST?: No POLST Last Review Date: Jun 28, 2016 Antibiotics: Determine Use or Limitations Artificially Admin Nutrition: No Artifical Nutrition by Tube POLST Discussed with: Health Care Agent ([facility]) (subject approached with stepdaughter today) POLST Review Outcome: New Form Completed . Advanced Care Planning Address: POL, Code status change Total time 65 minutes; >50% face to face with patient and/or family, providing counselling regarding plans and recommendations, and in care coordination with his/her medical teams. I also spent an additional 60 minutes counseling for advanced care planning with the patient/the patients family/the surrogate decision maker. Palliative Brief Note Date of Service Jun 28, 2016 . On am rounds this morning, patient is cheerful, eating breakfast, no issues with pain or dyspnea and hopes to go home today. Dr. Pennington alerted him to our family meeting with his stepdaughter Pito Mcintyre at 11a.mBrooke Marsh MD Jun 28, 2016 10:15
[2016-06-28] MEDS: ALPRAZolam 0.5 mg Tablet PO SCH (10:35)
[2016-06-28] MEDS: predniSONE 20 mg Tablet PO SCH (10:41)
--- NOTE | 2016-06-28 11:42 | NUR ---
OOB/Bathed SBA to chair, bathed pt from head to toes, applied nystatin cream to macerated areas, new gown. Pt ready to participate in meeting with Palliative and step daughter in law. Care continues.
--- NOTE | 2016-06-28 11:51 | NUR ---
Social Work: Discharge D: Pt discussed with MD and palliative care team. Pt was able to meet with his team and has decided that he would like to pursue hospice as an outpatient. Pt updated his POLST and it is on file. Pt is agreeable to going home initially with for nursing and a bath aid until hospice can open for services. t/c to [facility] to provide referral; they will contact the pt next week to setup an info visit. t/c to Madi Neely with [facility] to notify of pt's discharge and plan to open with hospice in the near future. F2F provided to [facility] A: Pt who lives at home with his spouse. Pt has been cleared for d/c home by PT. 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 GLENIS Resendez
--- NOTE | 2016-06-28 12:00 | NUR ---
Palliative Care TEMPLATE CHECKER Note06/28/1710:15AM D: Prior to meeting with pt., this chart writer and Palliative Care Provider, Dr. Pennington, met with pt.'s step-daughter, Jim Mcintyre, about pt.'s current clinical status and his increasing care needs. Per Jim, both pt. and his (her mother), Sarah, are struggling to remain safe at home due to chronic illness. Dr. Pennington and this chart writer expressed that pt. would qualify for Hospice care due to his end stage COPD and CHF. Jim shared she hoped pt. would be open to this form of support as she doesn't feel she can continue to provide all the care support her mother and step-father require, and that pt.'s poorly managed medical conditions are causing a great deal of stress to the family. Jim expressed that she has her own health issues and that her has dementia so she is also the caregiver for her spouse. At this point pt. joined the conversation and the subject of Hospice care was introduced. Pt. shared he was willing to have Hospice care as he does not want to continue coming to [facility] for treatment of his COPD and CHF exacerbation. Pt. completed POLST form noting he wants to be DNR/DNI, comfort measures only. The services of Hospice were described to pt. (in-home RN support as needed for symptom management, social services aide support, bath aide, spiritual care, etc...) and pt. expressed the program seems like the right choice at this time. Pt. was given original POLST form and copies of POLST were left in his chart and with Jim. This chart writer let [facility] TEMPLATE CHECKER, Haily, know that pt. needs Hospice referral. Pt. aware he will discharge home today and that [facility] will contact him in the coming days to arrange for an in-home informational visit and, if amenable, can complete Hospice intake paperwork and begin to provide home-based Hospice care. A: Pt. seemed very open to having home-based Hospice services to assist with symptom management for his COPD and CHF. Pt.'s step-daughter, Jim, is also supportive of having Hospice for pt. Both pt. and Jim expressed that pt.'s (Jim's mother) will likely also be supportive of pt. starting Hospice services. P: [facility] CM department to make referral to [facility]. Pt. to discharge home from [facility] today. GLENIS Rosado, [facility]
[2016-06-28] MEDS ORDERED: ZIT250 PO (12:12)
[2016-06-28] MEDS ORDERED: PARO20TA5 PO (12:12)
[2016-06-28] MEDS ORDERED: PRED-508 PO (12:12)
--- NOTE | 2016-06-28 12:24 | PCM.DIMED ---
[place] Shores[place]arred koo 06/28/16 1224: Discharge Instructions Date of Service Jun 28, 2016 Dates of Hospitalization Jun 24, 2016 at 23:02 Discharge Diagnosis Discharge Diagnosis 1. Acute on chronic hypoxemic respiratory failure. 2. Acute on Chronic diastolic heart failure. 3. Acute on chronic obstructive pulmonary disease exacerbation 4. Chronic Atrial fibrillation, currently rate controlled 5. Chronically Elevated Troponin 6. Acute kidney injury 7. Hypertension. Chronic 8. Depression. Chronic 9. Diffuse intertrigo. Chronic 10. Chronic Obstructive sleep apnea, secondary to obesity 11. Onychomycosis, chronic, present on admission Medication Instructions Please take one more dose of 40 mg prednisone by mouth tomorrow morning. After which please resume taking your daily 10 mg of prednisone every day. Please take one more dose of azithromycin 500 mg, tomorrow evening by mouth. I have increased her dose of paroxetine from 20 mg a day to 40. I also provided a prescription addressing this new dosage. If you are currently taking one 20 mg pill, please begin taking two 20 mg pills every night before bed. Diet Heart Healthy Activity No restrictions, Home Health Phyical Therapy Call your provider Fever or Chills, Shortness of breath, Bleeding, Chest pain, Vomitting, Excessive diarrhea, Weakness (unilateral) Patient Instructions Please continue all your medications as prescribed. As mentioned above please take 40 mg prednisone tomorrow, and then afterwards begin your daily 10 mg. If you experience a return of symptoms, worsening shortness of breath, chest pain, lightheadedness, dizziness fevers, chills, nausea/vomiting/diarrhea. Please return to the emergency department or call 911 if necessary. Please follow-up with your primary caregiver within 1 week of discharge to review your hospitalization and routine medical maintenance of your chronic diseases. You need to follow-up with pulmonology clinic regarding your chronic breathing problems. You are to have physical therapy provided to you by home health service. Follow-up plan You had previously seen Dr. Rainey for your respiratory needs, she has left [facility]. Please schedule appointment with another provider at [facility] pulmonology to be seen for follow-up to your chronic respiratory diseases. Follow-up Provider: Rk Valiente MD Follow-up with PCP in: 1 week Angie Lorenzo DO 06/28/16 1536: Discharge Instructions Patient Instructions Additional Information Once the hospice consultation has been completed please follow their recommendations from that point on. Attending's Statement The patient was seen and examined together with Dr. Buckner on 06/28/16 and I have added additional information to the note above. Jarred Buckner DO Jun 28, 2016 12:24 Angie Lorenzo DO Jun 28, 2016 15:36
--- NOTE | 2016-06-28 14:27 | NUR ---
Discharge Pt discharged at approximately 1420 to home via taxi. Pt given discharge packet with educational material for CHF, new prescriptions, next dose to be taken clearly written and dated. IV's DC'd catheter, tele DC'd hall monitor notified. Pt acknowledged and understood all information. Pt left with all personal belongings. Escorted by [employer] to met taxi.
--- NOTE | 2016-06-28 16:39 | PCM.DC.MED ---
Discharge Summary Date of Service Jun 28, 2016 Dates of Hospitalization Date of Hospital Admission Jun 24, 2016 at 11:02 pm Date of Discharge: Jun 28, 2016 Providers: Admitting Physician: Ector Prieto MD Primary Care Physician: Rk Valiente MD Attending Physician: Ector Prieto MD Diagnosis at Time of Discharge Diagnosis at Time of Discharge 1. Acute on chronic hypoxemic respiratory failure. 2. Acute on Chronic diastolic heart failure. 3. Acute on chronic obstructive pulmonary disease exacerbation 4. Chronic Atrial fibrillation, currently rate controlled 5. Chronically Elevated Troponin 6. Acute kidney injury 7. Hypertension. Chronic 8. Depression. Chronic 9. Diffuse intertrigo. Chronic 10. Chronic Obstructive sleep apnea, secondary to obesity 11. Onychomycosis, chronic, present on admission Consultations Wound Care Procedures XRay, CTs & MRIs Portable chest x-ray performed 06/27/2016 - personally reviewed IMPRESSION: Mild edema not significantly changed. Dictated by: Genaro Zavaleta RRLashonda Interpreted: Bety Spann MD on 06/27/2016 at 12:06 PROCEDURE: X-RAY CHEST ONE VIEW, PORTABLE IMPRESSION: Increased pulmonary vascularity with coarsened bibasilar opacities. The latter could be airport representative of edema vs developing air space disease. Dictated by: Juliane Mcclure M.D. on 06/24/2016 at 21:40 Approved by: Juliane Mcclure M.D. on 06/24/2016 at 21:42 ECG 12 Lead Atrial fibrillation rate 88. 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 No acute ST changes. Cardiac Echo Impression Most Recent Echo Interpretation Summary by Dr. Vladimir Wilks on 04/23/16: The left ventricle is normal in size. The left ventricular ejection fraction is normal. The ejection fraction is estimated to be 65-70%. There has been no significant change since the previous study. There are no focal wall motion abnormalities. The right ventricle is mildly dilated. Right ventricular systolic function is mild to moderately reduced. Right ventricular systolic function has decreased since previous exam. The right ventricular systolic pressure is estimated at 53 mmHg assuming a right atrial pressure of 15 mm Hg. RVSP has increased. Consider pulmonary embolism given the increased RVSP and decreased RV systolic function. The dimensions of the ascending aorta are normal. Brief History From Admission note: "Mr. Sarath Weiss is a 81 yo morbidly obese man with complex history of O2- dependent COPD with chronic respiratory failure, diastolic CHF, chronic lymphedema, chronic Afib, NGOZI, and depression and hypertension brought to the ED by EMS for progressively worsening shortness of breath in the last week. Patient admits to severe dyspnea, productive cough, and increased leg edema that he had to call the medics last night. He was seen at his home by medics and was administered breathing treatments that provided some relief of symptoms. Patient states "I should have come but I talked myself out of it." However, his symptoms progressively returned and worsened overnight, which is the cause for his ER visit today. Admitted 06/24. Patient reports worsening of the chronic cough and has some thick white sputum production. He denies any chest pain, palpitations, fever, chills, and diaphoresis. He is on home oxygen typically at 2 L but has required 3 L in the last few days. The inhalers does not give him any relief. He is having a hard time taking care of himself since his has been sicker than him, and thus he has been very depressed and stressed. He reports to sleep while sitting up and has about 3 hours of sleep per night. Patient is pretty much bed bound and is only able to ambulate to the bathroom. Patient admits that he has been so fatigue the last couple days that he has not taken any of his medications for 2 days. He states that he does not know what medications to take because every time he is in the hospital, his medications got changed and he cannot see his PCP for months. " Hospital Course 81 yo morbidly obese man with complex history of O2-dependent COPD with chronic respiratory failure, diastolic CHF, chronic lymphedema, chronic Afib, NGOZI, and depression and hypertension brought to the ED by EMS for progressively worsening shortness of breath in the week leading up to admission. During his hospital stay he received IV furosemide for diuresis to treat his CHF exacerbation, and prednisone, azithromycin, along with scheduled nebulizers to treat his COPD. His symptoms improved rapidly over the first 24 hours, he continued to be diuresed, day before discharge was transitioned back to his home oral furosemide regimen, which he responded well to. He was discharged on hospital day 5. During the course of this patient's hospital stay he has expressed the fact that he understands that his CHF is progressively worsening and no longer wants to be on any type of fluid restrictions. The patient states that he would prefer to go home to be with his who is currently very ill and would like to be placed on hospice at this time. Palliative care was consulted and a very long discussion was held and the patient has decided to be placed on hospice. The patient will go home with home health and once the patient's hospice evaluation is complete and he is accepted there and home health will be discontinued at that time and the patient will be transitioned to hospice. The patient does seem to have some underlying depression and his fluoxetine was increased during this hospital stay. The patient's daughter was also present for the discussion currently agrees with the plan. 1. Acute on chronic hypoxemic respiratory failure. Present on admission. Improved. - Patient requires 3 L O2 at home, and was back to his baseline oxygen demands on discharge. - Multifactorial: deconditioning, medication noncompliance,COPD exacerbation, CHF decompensation. - Continue O2 supplement. Treat the underlying cause(s). - Rehabilitation maybe limited by severe COPD and patient's lack of motivation. - Physical therapy evaluation showed desaturations into the 80s with ambulation while on oxygen, and required several minutes of recovery. - Repeat chest x-ray day before discharge showed no appreciable change is pulmonary edema.Symptoms and pulmonary exam substantially improved- Reviewed and compared imaging personally. 2. Acute on Chronic diastolic heart failure. Present on admission. Active. - Secondary to non compliance with medications. - Patient presents with increase dyspnea, fatigue, edema, and cough. - The right ventricular systolic pressure is estimated at 53 mmHg via echo . - Lasix home dose is supposed to be 160mg PO QAM and 80mg QPM. - Received 80 mg IV every morning except day of discharge, has had good response and has been diuresing appropriately. - Switched to oral furosemide day before discharge. - Potassium was stable throughout admission. - Held Metolazone in the hospital. Resumed on discharge. - Strict I/O and daily standing weight.Pt is 8.3L negative on fluids since admission on morning of discharge. - Fluid restriction to 1500mls/24 hours. 3. Acute on chronic obstructive pulmonary disease exacerbation, present on admission. Active. - continuing systemic steroids: Prednisone 40 mg daily (day 4 of 5), received Solu-Medrol 125 mg IV in the ED. (Pharmacy confirmed first dose given 06/25/16), last dose due 06/29/16 - Azithromycin 500 mg daily for 5 days. (day 4) Last dose due 06/29/16 - Recent PFT on 06/14 showed severe airflow obstruction and severely reduced diffusing capacity with air trapping. - bronchodilator therapy with DuoNeb scheduled every 4 hours - continued Brovana, Singulair and Budesonide - continued oxygen supplementation with target 88-92 % - Tessalon Perles for cough suppression 4. Chronic Atrial fibrillation, currently rate controlled. Present on admission. Active. - Not currently on anticoagulations or rate control medications. - Chads score of 3. However, he is a high fall risk and medication noncompliance. - Antithrombotics with aspirin 81mg daily. - Monitor Tele - stable 5. Elevated troponin of uncertain significance, present on admission, stable. - Asymptomatic, no ST changes on EKG - Troponin was 0.023 on admission, likely demand ischemia. He has decreased on hospital day 2. Remains stable today. 6. Acute kidney injury, present on admission, improved. - BUN 45 and Cr 1.55, which are elevated from baseline (Cr around 1.0). - Avoid nephrotoxic drug and will hold Lisinopril. - Improved through out hospitalization. 7. Hypertension. Chronic. Stable. - Held lisinopril throughout hospitalization, re-started on discharge 8. Depression. Chronic. Not controlled - continuing, Bupropion 150mg daily, and Alprazolam 0.5mg BID. - Increased Paroxetine 20 mg daily to paroxetine 40 mg daily 9. Diffuse intertrigo. Chronic. Active. - Nystatin while in patient. - Patient had dry skin and severe fungal nail. He reported to unable to care for self. - Component of self neglect, patient is not interested in senior living facility or long-term care facility, however is amiable to home health for in- house care. 10. Chronic Obstructive sleep apnea, secondary to obesity, present on admission , active - Declines to wear CPAP, says he does not wear it at home because it is uncomfortable and does not allow him to cough. - Pulse oximetry on, continuous O2 at night. 11. Onychomycosis, chronic, present on admission Has been seen and evaluated by wound care. Maintenance has been performed to his toenails. We greatly appreciate wound cares services on this case. Overall patient improved, and was able to be returned to baseline. In the days leading up to discharge, ability to care for himself at home became of greater concern, social work and palliative care were able to find resources for the patient to have home health, and palliative care established that the patient wants to receive hospice care. Discussed the case with palliative care (Dr. Gill). Exam Vital Signs (Last) Date Time Temp Pulse Resp B/P Pulse Ox O2 Delivery O2 Flow Rate FiO2 06/28/16 12:03 36.5 88 139/78 92 Nasal Cannula 3.00 06/28/16 10:46 22 Exam General: Morbidly obese, chronically ill appearance. Alert, Oriented X3, Cooperative, Conversational dyspnea, Mild respiratory distress Eyes: PERRLA, Scleral Anicteric Mouth: Mouth Normal, Mucous Membranes Moist/[place] Neck: Supple, no Thyromegaly, trachea central. Difficult to assess JVD due to large neck circumference Chest & Lungs: Moderately improved breath sounds since yesterday, only mild wheezing at the end of expiration, greater on left than right. Cardiovascular: Irregular irregular rhythm. No Rubs/Gallops. + systolic murmur Pulses: Radial (present and equal), Unable to appreciate Dorsalis Pedis. Abdomen: Obese, Soft, Non-tender, Non-distended, Normoactive bowel tones. Extremities: Severe lymphedema in bilateral legs from the knees down with white verrucous hyperplasia and discoloration. Severe pedal pitting edema with fungal nails. Neurological: Appears to have increased somnolence today, Grossly neurologically intact, has generalized weakness, Normal Speech, Sensation Intact Lymphatic: Lymph nodes Cervical and Axillary not palpable Test 06/24/16 20:45 06/24/16 23:56 06/25/16 04:00 06/27/16 02:34 Pro-B-Type Natriuretic Peptide 484.5pg/mL (0-486) Urine Color Straw (YELLOW) Urine Appearance Hazy (CLEAR,HAZY) Urine pH 5.0 (5.0-8.0) Urine Specific Leming 1.007 (1.003-1.035) Urine Protein Negativemg/dL (NEG,TRACE) Urine Glucose (UA) Negativemg/dL (NEGATIVE) Urine Ketones Negativemg/dL (NEGATIVE) Urine Occult Blood Trace (NEGATIVE) Urine Nitrite Negative (NEGATIVE) Urine Bilirubin Negative (NEGATIVE) Urine Urobilinogen Normalmg/dL (NORMAL) Urine Leukocyte Esterase Trace (NEGATIVE) Urine RBC 0-2/hpf (0-2) Urine WBC 6-10/hpf (0-5) Urine Epithelial Cells Few/hpf (NONE-MOD) Urine Crystals None seen (NONE SEEN) Urine Bacteria Few/hpf (NONE-FEW) Urine Hyaline Casts None/lpf (NONE) Urine Granular Casts None seen (NONE SEEN) Urine Waxy Casts None seen (NONE SEEN) Urine Red Blood Cell Casts None seen (NONE SEEN) Urine White Blood Cell Casts None seen (NONE SEEN) Urine Mucus Present (None Seen) Urine Trichomonas None seen (NONE SEEN) Urine Yeast None (NONE SEEN) Urinalysis Comment None Urine Culture Reflexed Indicated Activated Partial Thromboplast Time 28.9sec (22.8-33.0) Neutrophils (%) (Auto) 75.0% (40-74) Lymphocytes (%) (Auto) 13.6% (14-46) Monocytes (%) (Auto) 10.5% (4-12) Eosinophils (%) (Auto) 0.5% (0-5) Basophils (%) (Auto) 0.2% (0-3) Total Bilirubin 0.2mg/dL (0.0-1.2) Aspartate Amino Transf (AST/SGOT) 16U/L (0-50) Alanine Aminotransferase (ALT/SGPT) 14U/L (0-44) Alkaline Phosphatase 57U/L (25-160) Total Protein 6.5g/dL (6.4-8.4) Albumin 3.3g/dL (3.4-5.0) Test 06/28/16 02:25 White Blood Count 7.9th/mm3 (3.8-10.1) Red Blood Count 3.89mil/mm3 (4.40-5.80) Hemoglobin 10.8g/dL (13.8-17.2) Hematocrit 36.2% (41.0-50.0) Mean Corpuscular Volume 93.1fL (81-100) Mean Corpuscular Hemoglobin 27.8pg (27.0-35.0) Mean Corpuscular Hemoglobin Concent 29.8% (32.0-37.0) Red Cell Distribution Width 15.2% (12.3-15.4) Platelet Count 125bil/L (150-400) Sodium Level 139mEq/L (134-144) Potassium Level 4.6mEq/L (3.5-5.2) Chloride Level 99mEq/L (97-108) Carbon Dioxide Level 29mmol/L (18-29) Blood Urea Nitrogen 38mg/dL (8-27) Creatinine 0.99mg/dL (0.76-1.27) Estimat Glomerular Filtration Rate 78mL/min (>59) Glucose Level 112mg/dL (60-99) Calcium Level 8.9mg/dL (8.5-10.1) Magnesium Level 2.2mg/dL (1.6-2.6) Troponin T 0.011ug/L (0.0-0.011) Discharge Medications Discharge Medications Alprazolam (Alprazolam) 0.5 Mg Tablet 0.5 MG PO BID (Reported) Arformoterol Tartrate (Brovana) 15 Mcg/2 Ml Nebu 15 MCG NEB BID Prescribed by: JUDAH SOLORZANO MD Aspirin Chew (Aspirin Chew) 81 Mg Chew 81 MG PO DAILY (Reported) Azithromycin (Zithromax) 250 Mg Tablet 500 MG PO HS Prescribed by: NILESH OLPEZ DO Budesonide (Pulmicort) 1 Mg/2 Ml Ampul.neb 1 MG IH BID (Reported) Bupropion ER (Bupropion ER) 150 Mg Tablet.er 150 MG PO QAM (Reported) Cyanocobalamin (Vitamin B-12) (Vitamin B-12) 1,000 Mcg Tab.subl 1,000 MCG SL DAILY (Reported) Ferrous Sulfate (Ferrous Sulfate) 325 Mg Tablet 325 MG PO BIDWM (Reported) Furosemide (Furosemide) 80 Mg Tab 160 MG PO QAM (Reported) TAKES 160 MG IN AM AND 80 MG IN AFTERNOON Furosemide (Lasix) 80 Mg Tablet 80 MG PO QPM (Reported) TAKES 160 MG IN AM AND 80 MG IN AFTERNOON Lisinopril (Lisinopril) 10 Mg Tablet 10 MG PO BID (Reported) Montelukast (Montelukast) 10 Mg Tablet 10 MG PO HS (Reported) Paroxetine (Paroxetine) 20 Mg Tablet 40 MG PO HS Prescribed by: NILESH LOPEZ DO Potassium Chloride ER (Klor-Con 10) 10 Meq Tablet.er 10 MEQ PO BIDWM (Reported) Prednisone (PredniSONE) 10 Mg Tablet 10 MG PO QAM (Reported) Prednisone (Deltasone) 20 Mg Tablet 40 MG PO DAILYWM Prescribed by: NILESH LOPEZ DO As needed Albuterol Sulfate (Ventolin HFA Inhaler) 200 Puff/18 Gm Inhaler 1-2 PUFFS INHALATION QID PRN PRN For Shortness of Breath (Reported) Ipratropium/Albuterol Sulfate (Iprat-Albut 0.5-3(2.5) mg/3 mL Inhalant Soln) 3 Ml Ampul.neb 3 ML IH Q6 PRN PRN For Wheezing (Reported) Metolazone (Metolazone) 2.5 Mg Tablet 2.5 MG PO 1-2 xWEEK PRN PRN LE EDEMA ( Reported) Nystatin (Nystop) 60 Gm Powder 1 APPLIC TOPICAL BID PRN PRN rash (Reported) Polyethylene Glycol 3350 (Miralax) 17 Gm Powd.pack 17 GM PO DAILY PRN PRN For Constipation Prescribed by: GAYLA PARRA MD Sennosides (Senna) 8.6 Mg Tablet 8.6 MG PO DAILY PRN PRN For Constipation ( Reported) Tramadol (Tramadol) 50 Mg Tablet 50 MG PO QID PRN PRN For Pain Prescribed by: YAO GELLER DO Trazodone (Trazodone) 50 Mg Tablet 25 MG PO HS PRN PRN insom Prescribed by: YAO GELLER DO Additional med instructions Please take one more dose of 40 mg prednisone by mouth tomorrow morning. After which please resume taking your daily 10 mg of prednisone every day. Please take one more dose of azithromycin 500 mg, tomorrow evening by mouth. I have increased her dose of paroxetine from 20 mg a day to 40. I also provided a prescription addressing this new dosage. If you are currently taking one 20 mg pill, please begin taking two 20 mg pills every night before bed. Followup Plan Follow-up plan You had previously seen Dr. Rainey for your respiratory needs, she has left [facility]. Please schedule appointment with another provider at [facility] pulmonology to be seen for follow-up to your chronic respiratory diseases. Discharge Diet: Heart Healthy Discharge Activity: No restrictions, Home Health Phyical Therapy Patient Instructions Please continue all your medications as prescribed. As mentioned above please take 40 mg prednisone tomorrow, and then afterwards begin your daily 10 mg. If you experience a return of symptoms, worsening shortness of breath, chest pain, lightheadedness, dizziness fevers, chills, nausea/vomiting/diarrhea. Please return to the emergency department or call 911 if necessary. Please follow-up with your primary caregiver within 1 week of discharge to review your hospitalization and routine medical maintenance of your chronic diseases. You need to follow-up with pulmonology clinic regarding your chronic breathing problems. You are to have physical therapy provided to you by home health service. Follow-up Provider: Rk Valiente MD Follow-up with PCP in: 1 week Time spent One hour Attending Statement The patient was seen and examined together with Dr. Buckner on 06/28/16 and I have added additional information to the note above. copies to: Rk Valiente MD, Noah M DO Jun 28, 2016 16:39 Angie Lorenzo DO Jun 28, 2016 17:18
--- NOTE | 2016-07-01 08:38 | NUR ---
Palliative care note D/A: Phone call from Sharyn at [facility] today to discuss referral. [facility] will see pt today for info visit. AT this time-there is not an open until Th07/04/16. [facility] will put pt on the wait list for possible earlier open visit. Discussed use of [facility] to bridge gap, agreement that HH agency will not be able to see pt sooner and will only be able to be in very short term. Sharyn to call [facility] and will discuss referral and most likely cancel it. Case discussed with Olive who also discusses with Sharyn. This worker faxes over most recent copy of POLST. Note that POLST is dated 06/28/16 and notes that pt elects DNR/DNI, comfort measures only. Medical conditions are noted as COPD on O2 and steroids as well as CHF Class III. Pt elects to have use of antibiotics determined when infection occurs and no medically assisted nutrition by tube. P: Palliative care to follow as needed. Nae MENDOZA, CCM
--- NOTE | 2016-07-02 15:06 | NUR ---
Palliative care note D/A: Phone call from Sharyn at [facility]. She has spoken to pt who is very reluctant to pursue hospice. Sharyn has also spoken to [facility] who opened pt up for services on 06/30/16. Sharyn has spoken to pt HH RN who is not sure that pt will meet criteria. Additionally, Sharyn has spoken to Michelle RN at [facility] who feels that with pt history of non medication compliance as well as poor po intake, he will meet criteria. [facility] is aware to call [facility] if questions/concerns/needs arise and Sharyn will follow up in approx. two weeks. P: No further need for PC to follow. Nae MENDOZA, CCM
== END 2016-06-28 14:27 | disposition home health service (06) | DRG 291 ==
LOC: SED 20:47 → EDBD 20:47 → PCC 23:02
PROVIDERS: ADMIT Hospitalist; ATTEND Hospitalist
DX: I50.33 Acute on chronic diastolic (congestive) heart failure (principal); J96.21 Acute and chronic respiratory failure with hypoxia; J44.1 Chronic obstructive pulmonary disease with (acute) exacerbation; N17.9 Acute kidney failure, unspecified; Z68.43 Body mass index [BMI] 50.0-59.9, adult; Z91.14 Patient's other noncompliance with medication regimen; Z99.81 Dependence on supplemental oxygen; L30.4 Erythema intertrigo; E66.01 Morbid (severe) obesity due to excess calories; Z87.891 Personal history of nicotine dependence; I48.2 Chronic atrial fibrillation; G47.33 Obstructive sleep apnea (adult) (pediatric); I10 Essential (primary) hypertension; F32.9 Major depressive disorder, single episode, unspecified; Z51.5 Encounter for palliative care